=== PATIENT | female | born 1960 | race Two or more races ===

== ENCOUNTER 2024-09-05 20:12 | Inpatient (IN) | payer BC, MEDICAID ==
[~2024-09-05] VITALS: Ht 154.9 cm; Wt 56.2 kg
--- NOTE | 2024-09-05 21:41 | ED.PDOC ---
SOB-HPI HPI Comments 64 year old female presents to the ED with a chief complaint of cough onset 2 days. states patient has been experiencing cough for the past 2 days, noticed patient coughed up blood today around 11:00. Patient is non verbal due to CVA, is able to answer questions, shaking head yes or no. Upon ED arrival patient had an O2 sat of 84% on RA, placed on 4L O2 increased to 91%. Denies nausea, vomiting, diarrhea, shortness of breath, chest pain, fevers, abdominal pain, dizziness. No other symptoms or modifying factors present at this time. Chief Complaint: Cough Time Seen by MD: 21:35 Reviewed notes: Medications, Allergies Information Source: Patient, Spouse Mode of Arrival: Ambulatory Severity: Moderate Timing: Days Duration: Since onset Context: At Rest PE Risk Factors: None History of: None Prehospital treatment: None Modifying Factors: Nothing Associated Signs and Symptoms: Cough, Hemoptysis Radiation: No Radiation If cough with SOB: Productive, Bloody Constitutional: denies: chills, diaphoresis, fatigue, fever, malaise, sweats, weakness, others EENTM: denies: blurred vision, double vision, ear bleeding, ear discharge, ear drainage, ear pain, ear ringing, eye pain, eye redness, hearing loss, mouth pain, mouth swelling, nasal discharge, nose bleeding, nose congestion, nose pain, photophobia, tearing, throat pain, throat swelling, voice changes, others Respiratory: reports: cough, hemoptysis; denies: orthopnea, SOB at rest, shortness of breath, SOB with excertion, stridor, wheezing, others Cardiovascular: denies: chest pain, dizzy spells, diaphoresis, Dyspnea on exertion, edema, irregular heart beat, left arm pain, lightheadedness, palpitations, PND, syncope, others Gastrointestinal: denies: abdomen distended, abdominal pain, blood streaked bowels, constipated, diarrhea, dysphagia, difficulty swallowing, hematemesis, melena, nausea, poor appetite, poor fluid intake, rectal bleeding, rectal pain, vomiting, others Genitourinary: denies: abnormal vagina bleeding, burning, dyspareunia, dysuria, flank pain, frequency, hematuria, incontinence, pain, , vagina discharge, urgency, others Neurological: denies: dizziness, fainting, headache, left sided numbness, left sided weakness, numbness, paresthesia, pre-existing deficit, right sided numbness, right sided weakness, seizure, speech problems, tingling, tremors, weakness, others Musculoskeletal: denies: back pain, gout, joint pain, joint swelling, muscle pain, muscle stiffness, neck pain, others Integumetry: denies: bruises, change in color, change in hair/nails, dryness, laceration, lesions, lumps, rash, wounds, others Allergic/Immunocompromised: denies: Difficulty Healing, Frequent Infections, Hives, Itching, others Hematologic/Lymphatic: denies: anemia, blood clots, easy bleeding, easy bruising, swollen glands, others Endocrine: denies: excessive hunger, excessive sweating, excessive thirst, excessive urination, flushing, intolerance to cold, intolerance to heat, unexplained weight gain, unexplained weight loss, others Psychiatric: denies: anxiety, bipolar disorder, depression, hopeless, panic disorder, schizophrenia, sleepless, suicidal, others All Other Systems: Reviewed and Negative Physical Exam General Appearance: No Apparent Distress, Normal HEENT: Normal ENT Inspection, Pharynx Normal, TMs Normal Neck: Full Range of Motion, Non-Tender, Normal, Normal Inspection Respiratory: Chest Non-Tender, Lungs Clear, No Accessory Muscle Use, No Respiratory Distress, Normal Breath Sounds Cardiovascular: No Edema, No JVD, No Murmur, No Gallop, Normal Peripheral Pulses, Regular Rate/Rhythm Breast Exam: Deferred Gastrointestinal: No Organomegaly, Non Tender, No Pulsatile Mass, Normal Bowel Sounds, Soft Genitalia: Deferred Pelvic: Deferred Rectal: Deferred Extremities: No calf tenderness, Normal capillary refill, Normal inspection, Normal range of motion, Non-tender, No pedal edema Musculoskeletal : Apperance: Normal Neurologic: Alert, boatswain's mate II-XII nml as Tested, No Motor Deficits, Normal Affect, Normal Mood, No Sensory Deficits Cerebellar Function: Normal Reflexes: Normal Skin: Dry, Normal Color, Warm Lymphatic: No Adenopathy Was a procedure done? Was a procedure done?: No Differential Dx Differential Diagnosis: Asthma, Bronchitis, CHF, COPD, Pulmonary Embolism, Respiratory Distress, URI, Other X-Ray, Labs, Meds, VS Vital Signs Date Time Temp Pulse Resp B/P (MAP) Pulse Ox O2 Delivery O2 Flow Rate FiO2 09/05/24 21:33 98.9 68 16 141/65 (90) 90 98.9 09/05/24 21:33 16 91 Nasal Cannula* 4 36 Lab Test 09/05/24 22:54 09/05/24 22:07 Range/Units Troponin I High Sensitivity Pending < 3 L </=34 ng/L White Blood Count 15.5 H 4.4-10.8 10^3/uL Red Blood Count 5.26 H 4.0-5.20 10^6/uL Hemoglobin 16.4 H 12.2-16.2 g/dL Hematocrit 50.1 H 36.0-46.0 % Mean Corpuscular Volume 95.4 80.0-100.0 fL Mean Corpuscular Hemoglobin 31.2 28.0-32.0 pg Mean Corpuscular Hemoglobin Concent 32.7 32.0-36.0 g/dL Red Cell Distribution Width 14.5 H 11.8-14.3 % Platelet Count 237 140-450 10^3/uL Mean Platelet Volume 9.5 6.9-10.8 fL Neutrophils (%) (Auto) 79.6 37.0-80.0 % Lymphocytes (%) (Auto) 14.1 10.0-50.0 % Monocytes (%) (Auto) 5.0 0.0-12.0 % Eosinophils (%) (Auto) 0.6 0.0-7.0 % Basophils (%) (Auto) 0.7 0.0-2.0 % Neutrophils # (Auto) 12.3 H 1.6-8.6 10 ^3/uL Lymphocytes # (Auto) 2.2 0.4-5.4 10 ^3/uL Monocytes # (Auto) 0.8 0-1.3 10 ^3/uL Eosinophils # (Auto) 0.1 0-0.8 10 ^3/uL Basophils # (Auto) 0.1 0-0.2 10 ^3/uL Nucleated Red Blood Cells 0.3 % Prothrombin Time 11.4 9.3-11.8 sec Prothrombin Time INR 1.08 0.9-1.15 Activated Partial Thromboplast Time 30.2 24.5-34.5 SEC Sodium Level 139 136-145 mmol/L Potassium Level 4.5 3.5-5.1 mmol/L Chloride Level 107 98-107 mmol/L Carbon Dioxide Level 22 20-31 mmol/L Anion Gap 10 5-15 Blood Urea Nitrogen 20 9-23 mg/dL Creatinine 0.85 0.550-1.02 mg/dL Glomerular Filtration Rate Calc 76 >90 mL/min BUN/Creatinine Ratio 23.5 H 10.0-20.0 Serum Glucose 94 74-106 mg/dL Lactic Acid Level 1.4 0.4-2.0 mmol/L Calcium Level 10.5 H 8.7-10.4 mg/dL Total Bilirubin 0.5 0.2-1.0 mg/dL Aspartate Amino Transferase (AST) 17 13-40 U/L Alanine Aminotransferase (ALT) 25 7-40 U/L Alkaline Phosphatase 115 46-116 U/L B-Type Natriuretic Peptide 33.96 0-100 pg/mL Total Protein 8.1 5.7-8.2 g/dL Albumin 5.3 H 3.2-4.8 g/dL Time of 1ST Reevaluation: 22:05 Reevaluation 1ST: Unchanged Time of 2ND Reevaluation: 23:14 Reevaluation 2ND: Unchanged Patient Education/Counseling: Diagnosis, Treatment, Prognosis Family Education/Counseling: Diagnosis, Treatment, Prognosis Additional Information The following tests were ordered, and results were reviewed by me: CBC, CMP, BNP, PTPTT, XY CHEST, EKG, TROP -x2, LA W/ REFLEX, BLOOD CULTURE Additional Information was gathered from interviewing the following independent historians: I reviewed and agreed with the following test results read by other providers:XY CHEST I discussed treatment and results with medical personnel and: Patient, Comprehensive systems review obtained and negative except for what is stated in the HPI. Departure 1 Departure Time of Disposition: 23:12 Impression: Primary Impression: Respiratory failure with hypoxia Additional Impression: Pneumonia Disposition: ADMITTED INPATIENT Condition: Guarded Discharged With: Self, Spouse Comments Cough with Hemoptysis and Hypoxia Chief Complaint: Cough with hemoptysis History of Present Illness: 64-year-old female presented to the ED accompanied by her with complaints of cough for the past several days. Today, the noticed the patient developed hemoptysis and gurgling respirations with labored breathing at home. Upon arrival to triage, patient was found to be hypoxic with oxygen saturation in the mid-80s on room air. She was immediately placed on supplemental oxygen via nasal cannula at 4L/min with improvement in oxygen saturation to low 90s. 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 Problem List: 1. Right lower lobe pneumonia, 2. Hypoxic respiratory failure, 3. Hemoptysis Differential Diagnosis: Community-acquired pneumonia, Healthcare-associated pneumonia, Pulmonary embolism, Bronchitis, Malignancy ED Course: Patient was found to be hypoxic requiring supplemental oxygen. Labs revealed leukocytosis, and imaging confirmed right lower lobe infiltrate. Patient received IV antibiotics (Ceftriaxone and Azithromycin) and was stabilized on supplemental oxygen. Assessment and Plan: 1. Right Lower Lobe Pneumonia with Hypoxic Respiratory Failure: - Admit to medical floor for continued management - Continue IV Ceftriaxone and Azithromycin - Supplemental oxygen via nasal cannula to maintain O2 saturation > 92% - Monitor respiratory status - Deep breathing exercises and pulmonary toilet 2. Hemoptysis: - Likely secondary to pneumonia - Monitor for worsening Billing Information: ICD-10: J18.1 - Right lower lobe pneumonia ICD-10: J96.01 - Acute hypoxic respiratory failure ICD-10: R04.2 - Hemoptysis Critical Care Note Critical Care Time?: Yes (35 min-critical care time only) Critical care comment: Total critical care time: Approximately 36 minutes Due to a high probability of clinically significant, life threatening deterioration, the patient required my highest level of preparedness to intervene emergently and I personally spent this critical care time directly and personally managing the patient. This critical care time included obtaining a history; examining the patient; pulse oximetry; ordering and review of studies; arranging urgent treatment with development of a management plan; evaluation of patient's response to treatment; frequent reassessment; and, discussions with other providers. This critical care time was performed to assess and manage the high probability of imminent, life-threatening deterioration that could result in multi-organ failure. It was exclusive of separately billable procedures and treating other patients. Stability Stability form required: No Heart Score Heart Score: Heart Score Response (Comments) Value History Slightly Suspicious 0 EKG Normal 0 Age >65 2 Risk Factors 1 or 2 risk factors 1 Troponin Normal limit 0 Total 3 I personally scribed for VALDEZ LIM MD ([email or web address]) on 09/05/24 at 21:41. Electronically submitted by Nancie Pierce ([email or web address]). I personally scribed for VALDEZ LIM MD ([email or web address]) on 09/05/24 at 21:57. Electronically submitted by Nancie Pierce ([email or web address]). I personally scribed for VALDEZ LIM MD ([email or web address]) on 09/05/24 at 22:03. Electronically submitted by Nancie Pierce ([email or web address]). VALDEZ LIM MD Sep 05, 2024 21:41
[2024-09-05 22:23] LABS: Basophils # (auto) 0.1 10 ^3/uL (0-0.2); Basophils % (auto) 0.7 % (0.0-2.0); Eosinophils # (auto) 0.1 10 ^3/uL (0-0.8); Eosinophils % (auto) 0.6 % (0.0-7.0); Hematocrit 50.1 % (36.0-46.0); Hemoglobin 16.4 g/dL (12.2-16.2); Lymphocytes # (auto) 2.2 10 ^3/uL (0.4-5.4); Lymphocytes % (auto) 14.1 % (10.0-50.0); Mean Corpuscular Hemoglobin 31.2 pg (28.0-32.0); Mean Corpuscular Hgb Conc. 32.7 g/dL (32.0-36.0); Mean Corpuscular Volume 95.4 fL (80.0-100.0); Monocytes # (auto) 0.8 10 ^3/uL (0-1.3); Neutrophils # (auto) 12.3 10 ^3/uL (1.6-8.6); Neutrophils % (auto) 79.6 % (37.0-80.0); Nucleated Red Blood Cells % 0.3 %; Platelet Count (auto) 237 10^3/uL (140-450); Red Blood Cells 5.26 10^6/uL (4.0-5.20); Red Cell Distribution Width 14.5 % (11.8-14.3); White Blood Cell 15.5 10^3/uL (4.4-10.8)
--- NOTE | 2024-09-05 22:26 | DVH ---
CHEST RADIOGRAPH Indication: SOB, cough with hemoptysis Technique: Single frontal view of the chest was obtained Comparison: None Findings/ IMPRESSION: Right basilar opacification concerning for airspace disease. No pneumothorax.
[2024-09-05 22:36] LABS: INR 1.08 (0.9-1.15); Partial Thromboplastin Time 30.2 SEC (24.5-34.5); Prothrombin Time 11.4 sec (9.3-11.8)
[2024-09-05 22:40] LABS: Alanine Aminotransferase 25 U/L (7-40); Alkaline Phosphatase 115 U/L (46-116); Anion Gap 10 (5-15); Aspartate Aminotransferase 17 U/L (13-40); BUN/Creatinine Ratio 23.5 (10.0-20.0); Bilirubin, Total 0.5 mg/dL (0.2-1.0); Blood Urea Nitrogen 20 mg/dL (9-23); Carbon Dioxide 22 mmol/L (20-31); Glucose 94 mg/dL (74-106); Potassium 4.5 mmol/L (3.5-5.1); Sodium 139 mmol/L (136-145); Total Protein 8.1 g/dL (5.7-8.2)
[2024-09-05 22:42] LABS: Albumin 5.3 g/dL (3.2-4.8); Calcium 10.5 mg/dL (8.7-10.4); Chloride 107 mmol/L (98-107)
--- NOTE | 2024-09-05 23:49 | DVHHPRES ---
History of Present Illness Resident Creating Document: TADEO FORBES RESIDENT History of Present Illness Ms Sosa this is a 64-year-old female with past medical history of multiple strokes, last stroke in 2018, possible hemorrhagic, slurred speech and residual RUE and RLE weakness, hypertension hyperlipidemia, ? COPD not on inhalers, chronic nicotine dependence presented to the ER with a chief complaint of hemoptysis for 1 day and shortness of breath for the past 3 days. Per patient's , present at ER, patient met her daughter who was sick and had similar complaints, then started the which is productive with phlegm which is yellowish, and now bloody - fresh red in color for the past day, associated with shortness of breaths on exertion, patient denies taking any inhalers at home. Patient denied fever, chills, nausea, vomiting, chest pain, abdominal pain, constipation or diarrhea. On arrival to the ER patient was saturating at 88, therefore required 4 L oxygen supplementation. She did not use oxygen at home. Chest x-ray shows right lower obesity. Past medical history: multiple strokes, last stroke in 2018, possible hemorrhagic, slurred speech and residual RUE and RLE weakness, hypertension hyperlipidemia, ? COPD not on inhalers, chronic nicotine dependence Home medications: Plavix 70 mg daily, citalopram 20 mg daily amlodipine 10 mg daily, olmesartan 20 mg daily PCP: In [place] Social history: Patient recently moved from [place] to [place]. Smoked a pack a day for the past 50 years, now smokes 1-2 cigarettes per day, denies marijuana, denies illicit drug use, denies drinking Patient seen and examined in the ER. Saturating 95 on 4 L oxygen supplementation. Has bilateral decreased breath sound on distant breath sounds. Smoke: <1 pack per day ALCOHOL: none Drugs: None Lives: with Family Review of Systems Constitutional: Yes: Weakness Respiratory: Cough, Shortness of breath, SOB with excertion, Hemoptysis Cardiovascular: Edema Allergies: Uncoded Allergies: SULFATE (Allergy, Unknown, 09/05/24) Exam Vital Signs Vital Signs Date Time Temp Pulse Resp B/P (MAP) Pulse Ox O2 Delivery O2 Flow Rate FiO2 09/05/24 21:33 98.9 68 16 141/65 (90) 90 98.9 09/05/24 21:33 Nasal Cannula* 4 36 Exam Female patient sitting in wheelchair in the ER comfortably, no acute distress. Patient has slurred speech General: Well-built, afebrile, palor, mucosae are moist Cardiovascular: Regular S1 and S2. No murmurs, gallops or rubs. No JVD elevation. Bilateral 2+ pitting edema Respiratory: Saturating 95 on 4 L NC. Bilateral decreased breath sounds. Abdomen: Soft, nontender, nondistended, normoactive bowel sounds, no rebound tenderness, no organomegaly, no masses Genitourinary: Deferred MSK/skin: Right upper extremity is contracted and flexed. Right lower extremity has motor weakness. Neurological: Urinary and bowel incontinence. Pupils are isocoric and reactive. Psych/Mental Status: A/Ox3 Labs/Xrays Labs Test 09/05/24 22:54 09/05/24 22:07 Range/Units Troponin I High Sensitivity < 3 L </=34 ng/L White Blood Count 15.5 H 4.4-10.8 10^3/uL Red Blood Count 5.26 H 4.0-5.20 10^6/uL Hemoglobin 16.4 H 12.2-16.2 g/dL Hematocrit 50.1 H 36.0-46.0 % Mean Corpuscular Volume 95.4 80.0-100.0 fL Mean Corpuscular Hemoglobin 31.2 28.0-32.0 pg Mean Corpuscular Hemoglobin Concent 32.7 32.0-36.0 g/dL Red Cell Distribution Width 14.5 H 11.8-14.3 % Platelet Count 237 140-450 10^3/uL Mean Platelet Volume 9.5 6.9-10.8 fL Neutrophils (%) (Auto) 79.6 37.0-80.0 % Lymphocytes (%) (Auto) 14.1 10.0-50.0 % Monocytes (%) (Auto) 5.0 0.0-12.0 % Eosinophils (%) (Auto) 0.6 0.0-7.0 % Basophils (%) (Auto) 0.7 0.0-2.0 % Neutrophils # (Auto) 12.3 H 1.6-8.6 10 ^3/uL Lymphocytes # (Auto) 2.2 0.4-5.4 10 ^3/uL Monocytes # (Auto) 0.8 0-1.3 10 ^3/uL Eosinophils # (Auto) 0.1 0-0.8 10 ^3/uL Basophils # (Auto) 0.1 0-0.2 10 ^3/uL Nucleated Red Blood Cells 0.3 % Prothrombin Time 11.4 9.3-11.8 sec Prothrombin Time INR 1.08 0.9-1.15 Activated Partial Thromboplast Time 30.2 24.5-34.5 SEC Sodium Level 139 136-145 mmol/L Potassium Level 4.5 3.5-5.1 mmol/L Chloride Level 107 98-107 mmol/L Carbon Dioxide Level 22 20-31 mmol/L Anion Gap 10 5-15 Blood Urea Nitrogen 20 9-23 mg/dL Creatinine 0.85 0.550-1.02 mg/dL Glomerular Filtration Rate Calc 76 >90 mL/min BUN/Creatinine Ratio 23.5 H 10.0-20.0 Serum Glucose 94 74-106 mg/dL Lactic Acid Level 1.4 0.4-2.0 mmol/L Calcium Level 10.5 H 8.7-10.4 mg/dL Total Bilirubin 0.5 0.2-1.0 mg/dL Aspartate Amino Transferase (AST) 17 13-40 U/L Alanine Aminotransferase (ALT) 25 7-40 U/L Alkaline Phosphatase 115 46-116 U/L B-Type Natriuretic Peptide 33.96 0-100 pg/mL Total Protein 8.1 5.7-8.2 g/dL Albumin 5.3 H 3.2-4.8 g/dL Assessment/Plan Assessment/Plan Acute hypoxic respiratory failure secondary to probable pneumonia, Gram-negative Probable sepsis due to above Acute COPD exacerbation Multiple CVAs in the past with residual right-sided weakness-last episode 2017 Hypertension Hyperlipidemia Nicotine dependence Plan: IV ceftriaxone and IV azithromycin, IV fluids for pneumonia Nebulized treatments along with p.o. prednisolone 40 mg b.i.d. for COPD exacerbation Continue Plavix and atorvastatin Consulted shear helper for hemoptysis and acute hypoxic respiratory failure Continue home medication amlodipine Nicotine patch advised Patient would benefit from Laba/Lama inhalers on discharge Diet NPO for now Lovenox 40 mg sc daily Pantoprazole 40 mg IV daily Plan discussed with patient and in the ER in which all questions have been answered Goals of care discussed for more than 30 minutes, full code status Case discussed with Dr. Price Plan discussed with: Patient Date of Service: Sep 05, 2024 Billing Provider: JUAN PRICE MD Common Visit Codes: 62109-[id number] INP/OBS CARE (HIGH) TADEO FORBES RESIDENT Sep 05, 2024 23:49
[2024-09-06] VITALS (18 sets, daily range): BP systolic 113–138; BP diastolic 55–72; PULSE 66–92; RESP 16–20; TEMP 97.5–98.4; O2SAT 55–99
[2024-09-06] MEDS: amLODIPine BESYLATE 5 MG TAB PO ONE
[2024-09-06] MEDS: ATORVASTATIN 20 MG TAB PO ONE
--- NOTE | 2024-09-06 00:34 | DVH ---
Bilateral lower extremity venous duplex Clinical History: r/o dvt Comparison: None Technique: Duplex Doppler evaluation of the deep venous systems of both lower extremities from the common femora l veins to the popliteal veins including color Doppler and spectral/pulsed waveform analysis was perf ormed. Findings: RIGHT SIDE: The common femoral vein demonstrates appropriate compressibility and waveform variability. There is compressibility/patency of the great saphenous vein at the proximal thigh. The femoral vein demonstrates appropriate compressibility and waveform variability. The deep femoral vein demonstrates appropriate compressibility and waveform variability. The popliteal vein demonstrates appropriate compressibility and waveform variability. There is normal compressibility at the tibioperoneal trunk. LEFT SIDE: The common femoral vein demonstrates appropriate compressibility and waveform variability. There is compressibility/patency of the great saphenous vein at the proximal thigh. The femoral vein demonstrates appropriate compressibility and waveform variability. The deep femoral vein demonstrates appropriate compressibility and waveform variability. The popliteal vein demonstrates appropriate compressibility and waveform variability. There is normal compressibility at the tibioperoneal trunk. Impression: 1. No right or left femoropopliteal venous thrombosis.
[2024-09-06] MEDS: IPRATROPIUM BROM 0.5 MG/2.5ML INH SOL NEB ONE (00:35)
[2024-09-06] MEDS: ALBUTEROL SULF 2.5 MG/0.5ML(0.5%) NEB SOLN NEB ONE (00:35)
[2024-09-06] MEDS: cefTRIAXone 1GM/50ML D5W 50 ML IV ONE (01:09)
[2024-09-06 01:18] LABS: Erythrocyte Sedimentation Rate 15 mm/hr (0-20)
[2024-09-06 01:49] LABS: COVID19 ANTIGEN SOFIA FIA NEGATIVE (NEGATIVE)
[2024-09-06 01:50] LABS: Rapid Influenza A Negative (Negative); Rapid Influenza B Negative (Negative)
[2024-09-06 01:52] LABS: T3 Total 0.61 ng/mL (0.60-1.81)
[2024-09-06 02:18] LABS: Base Excess -2.3 mmol/L (-2.0-3.0)
[2024-09-06] MEDS ORDERED: AMLO1TAB23 PO (02:36)
[2024-09-06] MEDS ORDERED: SIMV20TA20 PO (02:36)
[2024-09-06] MEDS ORDERED: LEVO50TA7 PO (02:36)
[2024-09-06] MEDS ORDERED: OLME20TA67 PO (02:36)
[2024-09-06] MEDS ORDERED: CITA-77 PO (02:36)
[2024-09-06] MEDS ORDERED: CLOP75TA70 PO (02:36)
[2024-09-06] MEDS: predniSONE 20 MG TAB PO ONE (03:53)
[2024-09-06] MEDS: PANTOPRAZOLE 40 MG/10 ML VIAL INJ IV SCH (03:53)
[2024-09-06] MEDS: AZITHROMYCIN 500MG/ 250ML 250 ML IV ONE (03:54)
[2024-09-06] MEDS: NICOTINE 14 MG/24HR TOPICAL PATCH TD ONE (03:55)
[2024-09-06 04:04] LABS: CRP High Sensitivity 0.21 mg/dL (<1.0); Magnesium 2.2 mg/dL (1.6-2.6)
[2024-09-06] MEDS ORDERED: ALBUTEROL SULF 2.5 MG/0.5ML(0.5%) NEB SOLN NEB SCH (06:00)
[2024-09-06] MEDS: LEVOTHYROXINE SODIUM 50 MCG TAB PO SCH (06:01)
[2024-09-06] MEDS: ALBUTEROL SULF 2.5 MG/0.5ML(0.5%) NEB SOLN NEB SCH (06:49)
[2024-09-06] MEDS: IPRATROPIUM BROM 0.5 MG/2.5ML INH SOL NEB SCH (06:49)
[2024-09-06 07:19] LABS: Basophils # (auto) 0.1 10 ^3/uL (0-0.2); Basophils % (auto) 0.6 % (0.0-2.0); Eosinophils # (auto) 0 10 ^3/uL (0-0.8); Eosinophils % (auto) 0.2 % (0.0-7.0); Hematocrit 39.8 % (36.0-46.0); Hemoglobin 13.5 g/dL (12.2-16.2); Lymphocytes % (auto) 8.9 % (10.0-50.0); Mean Corpuscular Hemoglobin 31.7 pg (28.0-32.0); Mean Corpuscular Hgb Conc. 33.9 g/dL (32.0-36.0); Mean Corpuscular Volume 93.6 fL (80.0-100.0); Monocytes # (auto) 0.4 10 ^3/uL (0-1.3); Monocytes % (auto) 3.2 % (0.0-12.0); Neutrophils # (auto) 9.9 10 ^3/uL (1.6-8.6); Neutrophils % (auto) 87.1 % (37.0-80.0); Platelet Count (auto) 199 10^3/uL (140-450); Red Blood Cells 4.26 10^6/uL (4.0-5.20); White Blood Cell 11.3 10^3/uL (4.4-10.8)
[2024-09-06 07:30] LABS: Alanine Aminotransferase 15 U/L (7-40); Albumin 4.4 g/dL (3.2-4.8); Alkaline Phosphatase 91 U/L (46-116); Anion Gap 8 (5-15); BUN/Creatinine Ratio 21.5 (10.0-20.0); Bilirubin, Total 0.8 mg/dL (0.2-1.0); Blood Urea Nitrogen 17 mg/dL (9-23); Calcium 9.6 mg/dL (8.7-10.4); Carbon Dioxide 22 mmol/L (20-31); Chloride 106 mmol/L (98-107); Potassium 3.9 mmol/L (3.5-5.1); Total Protein 6.8 g/dL (5.7-8.2)
[2024-09-06 07:36] LABS: Aspartate Aminotransferase 11 U/L (13-40); Glucose 133 mg/dL (74-106); Sodium 136 mmol/L (136-145)
--- NOTE | 2024-09-06 09:03 | ECG ---
[facility] Test Date: 2024-09-05 Test Time: 21:43:22 Pat Name: MP RIBEIRO Department: ER Room: 0282 Gender: F Lmsw: AM : 1960 Requested By: VALDEZ LMI Order Number: [id number] Reading MD: Berto Francisco Measurements Intervals [place] Rate: 65 P: 72 AL: 158 QRS: 32 QRSD: 84 T: 57 QT: 537 QTc: 559 Interpretive Statements Sinus rhythm Low voltage, extremity and precordial leads Prolonged QT interval Electronically Signed On 09-09-2024 20:20:43 PDT by Berto Francisco Please click the below link to view image of tracing.
[2024-09-06] MEDS: ENOXAPARIN SOD 40 MG/0.4 ML SYRINGE SC SCH (09:07)
[2024-09-06] MEDS: cefTRIAXone 1GM/50ML D5W 50 ML IV SCH (09:07)
[2024-09-06] MEDS: CITALOPRAM HYDROBR 20 MG TAB PO SCH (09:08)
[2024-09-06] MEDS: predniSONE 20 MG TAB PO SCH (09:08)
[2024-09-06] MEDS: CLOPIDOGREL BISULFATE 75 MG TAB PO SCH (09:09)
[2024-09-06] MEDS: amLODIPine BESYLATE 5 MG TAB PO SCH (09:10)
[2024-09-06] MEDS: AZITHROMYCIN 500MG/ 250ML 250 ML IV SCH (10:29)
--- NOTE | 2024-09-06 11:19 | DVHPNRES ---
Progress Note Date Seen: Sep 06, 2024 Resident Creating Document: EDUARDO SAAB RESIDENT Has the PT tested + for MRSA If YES, has PT been informed?: No Medical Necessity Reason Pt with a Central, PICC or Fol: No Subjective Review of Systems This is a 64-year-old female with past medical history of multiple strokes, last stroke was in 2018 with a hemorrhagic stroke bilaterally which had neurologic residual deficits in the right upper and right lower extremities and slurred speech, hypertension, hyperlipidemia, COPD (no home oxygen) \, hypothyroidism who presented to the ED brought by her due to shortness of breath, cough and hemoptysis. The states that all symptoms started three days before coming to the ED. 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 Patient and both denied any episode of fever/chills, weight loss, chest pain, abdominal tenderness, lower extremity swelling or any other symptoms. Upon admission, initial CBC showed a WBC of 11.3 but BNP was grossly unremarkable. TSH was significantly elevated at 63.84, we ordered free T4. Initial chest x-ray was showing right lower lobe opacities which could be compatible with consolidation/pneumonia. Patient was started on IV ceftriaxone and azithromycin. Patient was admitted for further assessment and management. Patient seen and examined at bedside. Patient is currently alert and oriented but is difficult to speak and has slurry speech due to residual neurologic deficits due to stroke in 2018. Patient is currently on 4 L of oxygen through nasal cannula and reports mild shortness of breath but denies chest pain at this time. There is mild crackles on right lower lobe and there is decreased breath sounds on bilateral lung sanchez. There was no lower extremity swelling and no additional findings at this time. Patient denies fever/chills, chest pain, abdominal pain, or any other complaints or symptoms at this time. ROS Constitutional: Denies weight loss, fever and chills. HEENT: Denies changes in vision and hearing. Respiratory: Reports mild shortness of breath and cough Cardiovascular: Denies chest discomfort or palpitations GI: Denies abdominal pain, nausea, vomiting and diarrhea. : Denies dysuria and urinary frequency. Musculoskeletal: Denies myalgias and joint pain Skin: Denies rash and pruritus. Neurological: Denies dizziness, headache, vision or hearing problems Objective vital signs Vital Sign Date Time Temp Pulse Resp B/P (MAP) Pulse Ox O2 Delivery O2 Flow Rate FiO2 09/06/24 10:13 92 Nasal Cannula 4.0 09/06/24 10:13 71 18 09/06/24 10:13 28 09/06/24 09:10 113/57 09/06/24 09:00 97.7 97.7 Total Intake and Output 09/05/24 09/05/24 09/06/24 15:00 23:00 07:00 Intake Total 0 ml Output Total 1 ml Balance -1 ml medications Current Medications Medications Dose Ordered Sig/Mihai Route Start Time Stop Time Status Last Admin Dose Admin Ipratropium [place] 0.5 mg Q4HWA NEB 09/06/24 06:00 09/06/24 10:13 0.5 MG Ceftriaxone Sodium 50 ml @ 100 mls/hr DAILY@09 IV 09/06/24 09:00 09/06/24 09:07 100 MLS/HR Azithromycin 250 ml @ 125 mls/hr DAILY IV 09/06/24 10:00 09/06/24 10:29 125 MLS/HR Levothyroxine Sodium 50 mcg QAM@0600 PO 09/06/24 06:00 09/06/24 06:01 50 MCG Amlodipine Besylate 10 mg DAILY PO 09/06/24 10:00 09/06/24 09:10 10 MG Citalopram Hydrobromide 20 mg DAILY PO 09/06/24 10:00 09/06/24 09:08 20 MG Atorvastatin Calcium 40 mg HS PO 09/06/24 22:00 Clopidogrel Bisulfate 75 mg DAILY PO 09/06/24 10:00 09/06/24 09:09 75 MG Enoxaparin Sodium 40 mg DAILY SC 09/06/24 10:00 09/06/24 09:07 40 MG Prednisone 40 mg BID PO 09/06/24 10:00 09/06/24 09:08 40 MG Pantoprazole Sodium 40 mg DAILY IV 09/06/24 03:30 09/06/24 09:07 40 MG Nicotine 1 patch DAILY TD 09/07/24 10:00 Albuterol 2.5 mg Q4HWA NEB 09/06/24 06:00 09/06/24 10:13 2.5 MG Examination Physical Examination General: Patient alert and oriented but has slurred speech and unable to maintain long conversations due to previous stroke. Patient following commands. HEENT: Normocephalic, atraumatic, moist mucous membranes Respiratory/pulmonary: There is decreased bilateral breath sounds on both lung sanchez and mild crackles on right lower lobe. Patient was having mild wheezes as well. Currently requiring 4 L of oxygen through nasal cannula Cardiovascular: Normal heart sounds S1 and S2 with no associated murmurs Abdomen: Abdomen nondistended, there is no pain to palpation in any of the abdominal quadrants, no palpable masses. Extremities: There is no peripheral edema present at the lower extremities. Peripheral Pulses: 3+ Radial (R). 3+ Radial (L). 3+ Dorsalis pedis (R). 3+ Dorsalis pedis(L) Skin: No rashes or pruritus, there is no sacral edema present at this time. Neurological: Patient has neurologic deficits due to previous stroke which involve slurred speech and right upper and lower extremity weakness. laboratory and microbiology Laboratory Tests 09/06/24 06:12 Test 09/06/24 06:12 Range/Units Serum Glucose 133 H 74-106 mg/dL Problem List/Assessment/Plan Problem List/Assessment/Plan Assessment/plan Acute hypoxic respiratory failure likely due to right lower lobe Gram-positive/Gram-negative pneumonia Acute COPD exacerbation Sepsis likely due to above R/O Tuberculosis -initial chest x-ray showed right lower lobe opacities most likely compatible with consolidation -currently requiring 4 L of oxygen through nasal cannula -start IV ceftriaxone and azithromycin -start methylprednisolone IV 40 mg b.i.d. -start respiratory therapy with albuterol and ipratropium med nebs -Ordered quantiferon TB test (unlikely) -monitor saturation closely Ruled out lower ext DVT -lower extremity venous Doppler showed no evidence of DVT Hypothyroidism -TSH came back at 63.84, ordered free T4 -start levothyroxine at 75mcg QAM History of multiple CVAs with neurologic deficits in the right upper and lower extremity weakness -continue Plavix 75 mg daily -continue atorvastatin 40 mg daily Primary hypertension -continue amlodipine 10 mg daily -monitor blood pressure closely Dyslipidemia -ordered lipid panel -continue atorvastatin 40 mg daily Current smoker with nicotine dependence -nicotine patch 14 g daily -encouraged on smoking cessation Goals of care discussed with the patient and at bedside for >25min Plan discussed with Dr. William Plan discussed with: Patient, Other Date of Service: Sep 06, 2024 Billing Provider: DELANEY WILLIAM DO Common Visit Codes: [id number] INP/OBS CARE(HIGH) EDUARDO SAAB RESIDENT Sep 06, 2024 11:19 DELANEY WILLIAM DO Sep 08, 2024 22:24
[2024-09-06] MEDS: LEVOTHYROXINE SODIUM 25 MCG TAB PO ONE (11:32)
[2024-09-06 12:32] LABS: Cholesterol 179 mg/dL (< 200)
[2024-09-06 12:33] LABS: Triglycerides 48 mg/dL (< 150)
[2024-09-06 12:34] LABS: LDL Cholesterol 94 mg/dL (< 100)
[2024-09-06 12:39] LABS: HDL Cholesterol 72 mg/dL (40-59)
[2024-09-06] MEDS: IOHEXOL 350 MG/ML 100ML IJ ONE (14:03)
--- NOTE | 2024-09-06 15:04 | DVH ---
CTA Chest with intravenous contrast INDICATION: r/o nodules/mass/PE COMPARISON: None TECHNIQUE: Multidetector spiral CTA of the chest was performed of the chest with intravenous contrast . PULMONARY ANGIOGRAPHY PROTOCOL was utilized using a bolus-tracking technique centered on the main p ulmonary artery. Axial, coronal and sagittal multiplanar and MIP reformats were performed. CONTRAST: Type of contrast: Omni 350 Contrast injected: 80 ml Radiation dose : Chest: CTDI volume is 15 mGy. Dose-length product is 505 mGy*cm The dose indicators for CT are the volume computed Tomography (CT) dose Index (CTDIvol) and the dose Length product (DLP), and are measured in units of mGy and mGy-cm, respectively. These indicators are not patient dose, but values generated from the CT scanner acquisition factors. The report includes radiation exposure data for exposures received during this examination. Findings: Limited by motion. Pulmonary artery: No large central or large segmental pulmonary embolism. Lower neck: Normal thyroid. Lungs: Bibasilar consolidation. Emphysematous changes in both lungs. Heart/Vascular Structures: Normal heart size. Small pericardial effusion. Lymph Nodes: Mediastinal lymph nodes, largest in the AP window measuring up to 11 mm in short axis. Pleura: No pleural effusion or significant pneumothorax. Musculoskeletal: No acute osseous abnormality. Soft tissues: Normal. Upper abdomen: Fullness in the region of the christian hepatis incompletely evaluated. IMPRESSION: 1. No pulmonary embolism. 2. Bibasilar pneumonia. Small pericardial effusion. Mediastinal lymphadenopathy. Clinical correlatio n and continued follow-up is recommended. 3. Fullness in the region of the christian hepatis incompletely evaluated. Could represent volume averagi ng. Consider further evaluation with CT or MRI of the abdomen with contrast. HS:Y
[2024-09-06 19:17] LABS: Free T4 (Free Thyroxine) 0.89 ng/dL (0.89-1.76)
--- NOTE | 2024-09-06 21:31 | DVHINCON2 ---
Date of service: Sep 06, 2024 Referring Physician Americo Wilkes MD Reason for Consultation Acute hypoxic respiratory failure, COPD exacerbation, hemoptysis, pneumonia History of Present Illness A 64-year-old woman with past medical history of ? COPD - not on inhalers; multiple strokes, last stroke in 2018, possible hemorrhagic, slurred speech and residual RUE and RLE weakness; hypertension, hyperlipidemia, and chronic nicot ine dependence who presented to ED on 09/05/24 with a chief complaint of hemoptysis for 1 day and shortness of breath x 3 days. Per patient's , patient had positive sick contact w/ daughter and developed productive cough w/ yellowish phlegm, now bloody for the past day, associated with shortness of breath on exertion. Pt denied fever, chills, N/V, chest pain, abdominal pain, or other acute complaints. In the ED, sats were 88%, therefore required 4 LPM NC. Chest x-ray showed right basilar opacification concerning for airspace disease. No pneumothorax.. Patient was admitted for further care and pulmonary consultation is requested for evaluation and management d/t the above findings. Review of Systems: 14-point review of systems negative unless otherwise noted above. Past Medical History: Multiple strokes, last stroke in 2018, possible hemorrhagic, slurred speech and residual RUE and RLE weakness, hypertension, hyperlipidemia, ? COPD - not on inhalers Past Surgical History: None Medications: Reviewed. Allergies: No known drug allergies. Family History: No family history of premature CAD. No family history of lung disorders. Social History: Smoker, less than 1 PPD. Smoked a pack a day for the past 50 years, now smokes 1-2 cigarettes per day, No alcohol or illicit drug use. Family History: Cerebrovascular accident (CVA) G8 MOTHER FH: testicular cancer G8 FATHER Allergies: Uncoded Allergies: SULFATE (Allergy, Unknown, 09/05/24) Home Meds Reported Medications Levothyroxine Sodium (Levothyroxine Sodium) 50 Mcg Tab, 1 TAB PO DAILY 09/06/24 Citalopram Hydrobromide (Citalopram Hydrobromide) 20 Mg Tab, 1 TAB PO DAILY 09/06/24 Olmesartan Medoxomil (Olmesartan Medoxomil) 20 Mg Tab, 1 TAB PO DAILY 09/06/24 Clopidogrel Bisulfate (CLOPIDOGREL) 75 Mg Tab, 1 TAB PO DAILY 09/06/24 Amlodipine Besylate (Amlodipine Besylate) 10 Mg Tab, 1 TAB PO DAILY 09/06/24 Simvastatin (Simvastatin) 20 Mg Tab, 1 TAB PO 09/06/24 Current Medications Current Medications Medications (Trade) Dose Ordered Sig/Mihai Route PRN Reason Start Time Stop Time Status Last Admin Ipratropium [place] (Atrovent Medneb) 0.5 mg Q4HWA NEB 09/06/24 06:00 09/06/24 18:27 Albuterol (Ventolin Medneb) 2.5 mg Q6HR NEB 09/06/24 06:00 09/06/24 05:40 DC Ceftriaxone Sodium 50 ml @ 100 mls/hr DAILY@09 IV 09/06/24 09:00 09/06/24 09:07 Azithromycin 250 ml @ 125 mls/hr DAILY IV 09/06/24 10:00 09/06/24 10:29 Levothyroxine Sodium (Synthroid Tablet) 50 mcg QAM@0600 PO 09/06/24 06:00 09/06/24 11:10 DC 09/06/24 06:01 Amlodipine Besylate (Norvasc Tablet) 10 mg DAILY PO 09/06/24 10:00 09/06/24 09:10 Citalopram Hydrobromide (CeleXA TABLET) 20 mg DAILY PO 09/06/24 10:00 09/06/24 09:08 Atorvastatin Calcium (Lipitor) 40 mg HS PO 09/06/24 22:00 Clopidogrel Bisulfate (Plavix) 75 mg DAILY PO 09/06/24 10:00 09/06/24 09:09 Enoxaparin Sodium (Lovenox) 40 mg DAILY SC 09/06/24 10:00 09/06/24 09:07 Prednisone 40 mg BID PO 09/06/24 10:00 09/06/24 10:54 DC 09/06/24 09:08 Pantoprazole Sodium (Protonix) 40 mg DAILY IV 09/06/24 03:30 09/06/24 09:07 Nicotine (Nicoderm 14MG/ 24HR) 1 patch DAILY TD 09/07/24 10:00 Albuterol (Ventolin Medneb) 2.5 mg Q4HWA NEB 09/06/24 06:00 09/06/24 18:27 Methylprednisolone Sodium Succinate (Solu Medrol) 40 mg BID IV 09/06/24 22:00 Levothyroxine Sodium (Synthroid Tablet) 75 mcg QAM@0600 PO 09/07/24 06:00 Vital Signs Vital Signs Date Time Temp Pulse Resp B/P (MAP) Pulse Ox O2 Delivery O2 Flow Rate FiO2 09/06/24 21:00 97.9 79 16 115/55 (75) 55 97.9 09/06/24 18:27 Nasal Cannula 5.0 09/06/24 18:27 40 Physical Exam Gen.: Patient lying in bed in no apparent distress. On supplemental oxygen. Head: Normocephalic, atraumatic. Eyes: EOMI/PERRLA. Ears: Normal hearing. Normal anatomy. Neck/trachea: Trachea midline, supple. Nose: Normal external anatomy. Mouth: Moist mucous membranes. Chest: Decreased air entry bilaterally. No wheezing or rhonchi. Cardiovascular: Positive S1, positive S2. Regular rate and rhythm. Abdomen: Positive bowel sounds in all 4 quadrants. Soft, non-tender, non- distended. : Deferred. Rectal: Deferred. Skin: Warm, dry. Intact. Extremities: 2+ radial pulses bilaterally. No lower extremity edema. Neuro: Awake, alert, oriented x3. No gross motor or sensory deficits. Cranial nerves II through XII intact. Gait not assessed. Labs/Diagnostic Data Labs Test 09/06/24 11:45 09/06/24 06:12 09/06/24 02:01 09/06/24 01:08 Range/Units Triglycerides Level 48 < 150 mg/dL Cholesterol Level 179 < 200 mg/dL LDL Cholesterol 94 < 100 mg/dL HDL Cholesterol 72 H 40-59 mg/dL White Blood Count 11.3 #H 4.4-10.8 10^3/uL Red Blood Count 4.26 4.0-5.20 10^6/uL Hemoglobin 13.5 # 12.2-16.2 g/dL Hematocrit 39.8 # 36.0-46.0 % Mean Corpuscular Volume 93.6 80.0-100.0 fL Mean Corpuscular Hemoglobin 31.7 28.0-32.0 pg Mean Corpuscular Hemoglobin Concent 33.9 32.0-36.0 g/dL Red Cell Distribution Width 14.0 11.8-14.3 % Platelet Count 199 140-450 10^3/uL Mean Platelet Volume 9.2 6.9-10.8 fL Neutrophils (%) (Auto) 87.1 H 37.0-80.0 % Lymphocytes (%) (Auto) 8.9 L 10.0-50.0 % Monocytes (%) (Auto) 3.2 0.0-12.0 % Eosinophils (%) (Auto) 0.2 0.0-7.0 % Basophils (%) (Auto) 0.6 0.0-2.0 % Neutrophils # (Auto) 9.9 H 1.6-8.6 10 ^3/uL Lymphocytes # (Auto) 1.0 0.4-5.4 10 ^3/uL Monocytes # (Auto) 0.4 0-1.3 10 ^3/uL Eosinophils # (Auto) 0 0-0.8 10 ^3/uL Basophils # (Auto) 0.1 0-0.2 10 ^3/uL Nucleated Red Blood Cells 0.0 % Sodium Level 136 136-145 mmol/L Potassium Level 3.9 3.5-5.1 mmol/L Chloride Level 106 98-107 mmol/L Carbon Dioxide Level 22 20-31 mmol/L Anion Gap 8 5-15 Blood Urea Nitrogen 17 9-23 mg/dL Creatinine 0.79 0.550-1.02 mg/dL Glomerular Filtration Rate Calc 82 >90 mL/min BUN/Creatinine Ratio 21.5 H 10.0-20.0 Serum Glucose 133 H 74-106 mg/dL Hemoglobin A1c 5.3 <5.7 % A1C Calcium Level 9.6 8.7-10.4 mg/dL Total Bilirubin 0.8 0.2-1.0 mg/dL Aspartate Amino Transferase (AST) 11 L 13-40 U/L Alanine Aminotransferase (ALT) 15 7-40 U/L Alkaline Phosphatase 91 46-116 U/L Total Protein 6.8 5.7-8.2 g/dL Albumin 4.4 3.2-4.8 g/dL Vitamin B12 Level 471 211-911 pg/mL Vitamin D 25-Hydroxy 67.4 30.0-100 ng/mL Blood Gas Specimen Type Arterial Blood Gas Sample Site Left radial Blood Gas Patient Temperature 37.0 Arterial Blood Date Drawn [id number] Arterial Blood pH 7.441 7.350-7.450 Arterial Blood Partial Pressure CO2 31.1 L 32.0-45.0 mmHg Arterial Blood Partial Pressure O2 57.7 L 83.0-108.0 mmHg Arterial Blood HCO3 20.7 L 21.0-28.0 mmol/L Arterial Blood Oxygen Saturation 89.8 L 94.0-98.0 % Arterial Blood Base Excess -2.3 L -2.0-3.0 mmol/L Arterial Blood Oxyhemoglobin 88.7 L 94.0-98.0 % Arterial Blood Carboxyhemoglobin 0.9 0.5-1.5 % Arterial Blood Methemoglobin 0.3 0.0-1.5 % [place] Test N/a Blood Gas Total Hemoglobin 14.60 12.0-16.0 g/dL Blood Gas Liter Flow 4.00 Blood Gas Modality Nasal cannula FiO2 % 36.0 Influenza Type A Antigen Negative Negative Influenza Type B Antigen Negative Negative SARS-CoV-2 Antigen (Rapid) Negative NEGATIVE Test 09/06/24 00:27 09/05/24 22:54 09/05/24 22:07 Range/Units Erythrocyte Sedimentation Rate 15 0-20 mm/hr D-Dimer, Quantitative 0.44 0.0-0.49 mg/L FEU Magnesium Level 2.2 1.6-2.6 mg/dL Troponin I High Sensitivity < 3 L </=34 ng/L C-Reactive Protein High Sensitivity 0.21 <1.0 mg/dL Thyroid Stimulating Hormone (TSH) 63.84 H 0.55-4.78 uIU/mL Prothrombin Time 11.4 9.3-11.8 sec Prothrombin Time INR 1.08 0.9-1.15 Activated Partial Thromboplast Time 30.2 24.5-34.5 SEC Lactic Acid Level 1.4 0.4-2.0 mmol/L B-Type Natriuretic Peptide 33.96 0-100 pg/mL Free Thyroxine (T4) Calculated 0.89 0.89-1.76 ng/dL Total Triiodothyronine (TT3) 0.61 0.60-1.81 ng/mL Microbiology Date/Time Source Procedure Growth Status 09/06/24 06:59 Nose MRSA Screen - Final Complete Assessment Impression: Acute hypoxic respiratory failure Dependence on supplemental oxygen Acute COPD exacerbation Hemoptysis Rule out TB Rule out Pulmonary embolism Pneumonia, likely gram negative Nicotine dependence Plan: Supplemental oxygen 4 LPM NC Titrate to keep O2 sats above 92%. Taper O2 as tolerated. Follow up CT chest to rule out PE. Induction of sputum for cultures IV fluids with 3% normal saline. Continue bronchodilators. Continue antibiotics IV steroids Incentive spirometry Antitussive for cough Quantify hemoptysis Monitor renal function. Monitor electrolytes. Supplement as necessary. Monitor ins and outs. Smoking cessation discussed for greater than 10 minutes DVT prophylaxis. Prognosis: Poor given patient's multiple co-morbidities. Rest of plan per hospitalist and other consultants. Thank you Dr. Wilkes for allowing me to participate in this patient's care. Further recommendations will depend on the patient's clinical course. Please do not hesitate to contact me if you have any questions or concerns. This medical document was created using an electronic medical record system with [employer] dictation system. Although these documentations are being carefully reviewed, there may still be some phonetic and typographical changes. The errors are purely typographical, due to imperfection on the software program, and do not reflect any compromise in the patient's medical care. Plan discussed with: Other (RN/Dr. Wilkes) HUGH CABRERA MD Sep 06, 2024 21:31
[2024-09-06] MEDS: ATORVASTATIN 20 MG TAB PO SCH (21:41)
[2024-09-06] MEDS: methylPREDNISolone SOD SUCC 40 MG/ML VL IV SCH (21:41)
[2024-09-07] VITALS (17 sets, daily range): BP systolic 100–126; BP diastolic 47–55; PULSE 63–88; RESP 16–22; TEMP 98–98.5; O2SAT 90–99
[2024-09-07] MEDS: LEVOTHYROXINE SODIUM 25 MCG TAB PO SCH (06:10)
[2024-09-07 07:42] LABS: Basophils # (auto) 0 10 ^3/uL (0-0.2); Basophils % (auto) 0.1 % (0.0-2.0); Eosinophils # (auto) 0 10 ^3/uL (0-0.8); Hematocrit 38.3 % (36.0-46.0); Hemoglobin 12.9 g/dL (12.2-16.2); Lymphocytes # (auto) 1.1 10 ^3/uL (0.4-5.4); Lymphocytes % (auto) 7.4 % (10.0-50.0); Mean Corpuscular Hemoglobin 31.4 pg (28.0-32.0); Mean Corpuscular Hgb Conc. 33.8 g/dL (32.0-36.0); Mean Corpuscular Volume 92.7 fL (80.0-100.0); Monocytes # (auto) 0.5 10 ^3/uL (0-1.3); Monocytes % (auto) 3.2 % (0.0-12.0); Neutrophils # (auto) 13.4 10 ^3/uL (1.6-8.6); Neutrophils % (auto) 89.3 % (37.0-80.0); Platelet Count (auto) 224 10^3/uL (140-450); Red Blood Cells 4.13 10^6/uL (4.0-5.20); Red Cell Distribution Width 13.9 % (11.8-14.3)
[2024-09-07 07:43] LABS: Anion Gap 11 (5-15); Carbon Dioxide 22 mmol/L (20-31); Chloride 107 mmol/L (98-107); Potassium 4.3 mmol/L (3.5-5.1); Sodium 140 mmol/L (136-145)
[2024-09-07 07:44] LABS: Calcium 10.1 mg/dL (8.7-10.4)
[2024-09-07 07:49] LABS: BUN/Creatinine Ratio 19.8 (10.0-20.0); Blood Urea Nitrogen 17 mg/dL (9-23); Glucose 125 mg/dL (74-106)
[2024-09-07] MEDS: NICOTINE 14 MG/24HR TOPICAL PATCH TD SCH (09:52)
[2024-09-07] MEDS: POLYETHYLENE GLYCOL 17 GM PWDR PO ONE (09:52)
[2024-09-07] MEDS: DOCUSATE SOD 100 MG CAP PO SCH (09:54)
--- NOTE | 2024-09-07 10:57 | DVHPNRES ---
Progress Note Date Seen: Sep 07, 2024 Resident Creating Document: EDUARDO SAAB RESIDENT Has the PT tested + for MRSA If YES, has PT been informed?: No Medical Necessity Reason Pt with a Central, PICC or Fol: No Subjective Review of Systems This is a 64-year-old female with past medical history of multiple strokes, last stroke was in 2018 with a hemorrhagic stroke bilaterally which had neurologic residual deficits in the right upper and right lower extremities and slurred speech, hypertension, hyperlipidemia, COPD (no home oxygen) \, hypothyroidism who presented to the ED brought by her due to shortness of breath, cough and hemoptysis. The states that all symptoms started three days before coming to the ED. 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 Patient and both denied any episode of fever/chills, weight loss, chest pain, abdominal tenderness, lower extremity swelling or any other symptoms. Upon admission, initial CBC showed a WBC of 11.3 but BNP was grossly unremarkable. TSH was significantly elevated at 63.84, we ordered free T4. Initial chest x-ray was showing right lower lobe opacities which could be compatible with consolidation/pneumonia. Patient was started on IV ceftriaxone and azithromycin. Patient was admitted for further assessment and management. Patient seen and examined at bedside. was at bedside, questions and concerns were addressed and explained in detail. We explained her that we did a CT angio of the chest which showed no pulmonary embolism but it was showing bibasilar consolidations that are worse in the right side compared to the left. She also mediastinal lymphadenopathy which is concerning because we do not know if it is infectious etiology we will have to rule out any malignancy. We will perform an MRI of the abdomen with contrast to rule out any possible source of malignancy. Meanwhile we will continue IV antibiotics ceftriaxone and azithromycin. We are still waiting for QuantiFERON test to rule out TB. Patient is currently hemodynamically stable and states that he is feeling slightly better compared to admission. ROS Constitutional: Denies weight loss, fever and chills. HEENT: Denies changes in vision and hearing. Respiratory: Still reports mild shortness of breath and cough. Cardiovascular: Denies chest discomfort or palpitations GI: Denies abdominal pain, nausea, vomiting and diarrhea. : Denies dysuria and urinary frequency. Musculoskeletal: Denies myalgias and joint pain Skin: Denies rash and pruritus. Neurological: Denies dizziness, headache, vision or hearing problems Objective vital signs Vital Sign Date Time Temp Pulse Resp B/P (MAP) Pulse Ox O2 Delivery O2 Flow Rate FiO2 09/07/24 09:55 111/54 09/07/24 09:00 98.2 69 18 94 98.2 09/07/24 07:58 Oxymizer 8.0 09/07/24 07:58 N/A Total Intake and Output 09/06/24 09/06/24 09/07/24 15:00 23:00 07:00 Intake Total 300 ml 240 ml Balance 300 ml 240 ml medications Current Medications Medications Dose Ordered Sig/Mihai Route Start Time Stop Time Status Last Admin Dose Admin Ipratropium [place] 0.5 mg Q4HWA NEB 09/06/24 06:00 09/07/24 07:58 0.5 MG Ceftriaxone Sodium 50 ml @ 100 mls/hr DAILY@09 IV 09/06/24 09:00 09/07/24 09:51 100 MLS/HR Azithromycin 250 ml @ 125 mls/hr DAILY IV 09/06/24 10:00 09/06/24 10:29 125 MLS/HR Amlodipine Besylate 10 mg DAILY PO 09/06/24 10:00 09/07/24 09:55 10 MG Citalopram Hydrobromide 20 mg DAILY PO 09/06/24 10:00 09/07/24 09:56 20 MG Atorvastatin Calcium 40 mg HS PO 09/06/24 22:00 09/06/24 21:41 40 MG Clopidogrel Bisulfate 75 mg DAILY PO 09/06/24 10:00 09/07/24 09:55 75 MG Enoxaparin Sodium 40 mg DAILY SC 09/06/24 10:00 09/07/24 09:57 40 MG Pantoprazole Sodium 40 mg DAILY IV 09/06/24 03:30 09/07/24 09:54 40 MG Nicotine 1 patch DAILY TD 09/07/24 10:00 09/07/24 09:52 1 PATCH Albuterol 2.5 mg Q4HWA NEB 09/06/24 06:00 09/07/24 07:58 2.5 MG Methylprednisolone Sodium Succinate 40 mg BID IV 09/06/24 22:00 09/07/24 09:53 40 MG Levothyroxine Sodium 75 mcg QAM@0600 PO 09/07/24 06:00 09/07/24 06:10 75 MCG Docusate Sodium 100 mg BID PO 09/07/24 10:00 09/07/24 09:54 100 MG Examination Physical Examination General: Patient alert and oriented but has slurred speech and unable to maintain long conversations due to previous stroke. Patient following commands. HEENT: Normocephalic, atraumatic, moist mucous membranes Respiratory/pulmonary: There is decreased bilateral breath sounds on both lung sanchez and mild crackles on right lower lobe. Patient was having mild wheezes as well. Currently requiring 4 L of oxygen through nasal cannula Cardiovascular: Normal heart sounds S1 and S2 with no associated murmurs Abdomen: Abdomen nondistended, there is no pain to palpation in any of the abdominal quadrants, no palpable masses. Extremities: There is no peripheral edema present at the lower extremities. Peripheral Pulses: 3+ Radial (R). 3+ Radial (L). 3+ Dorsalis pedis (R). 3+ Dorsalis pedis(L) Skin: No rashes or pruritus, there is no sacral edema present at this time. Neurological: Patient has neurologic deficits due to previous stroke which involve slurred speech and right upper and lower extremity weakness. laboratory and microbiology Laboratory Tests 09/07/24 06:04 Test 09/07/24 06:04 Range/Units Serum Glucose 125 H 74-106 mg/dL Microbiology Date/Time Source Procedure Growth Status 09/06/24 06:59 Nose MRSA Screen - Final Complete 09/05/24 22:07 Blood Blood Culture - Preliminary NO GROWTH AFTER 24 HOURS OF INCUBATION. Resulted Problem List/Assessment/Plan Problem List/Assessment/Plan Assessment/plan Acute hypoxic respiratory failure likely due to right lower lobe Gram-positive/Gram-negative pneumonia Acute COPD exacerbation Sepsis likely due to above R/O Tuberculosis -initial chest x-ray showed right lower lobe opacities most likely compatible with consolidation -currently requiring 4 L of oxygen through nasal cannula -Continue IV ceftriaxone and azithromycin, transition azithro to PO -Continue methylprednisolone IV 40 mg b.i.d. -Continue respiratory therapy with albuterol and ipratropium med nebs -Ordered quantiferon TB test (unlikely), still pending -monitor saturation closely Ruled out lower ext DVT -lower extremity venous Doppler showed no evidence of DVT Hypothyroidism -TSH came back at 63.84, ordered free T4 which came back in the lower level of normal 0.89 -Continue levothyroxine at 75mcg QAM - explained that she was taking the medication with other meds as well, which could explain a poor absorption even on a correct dosage. Provided correct proper way of administration. History of multiple CVAs with neurologic deficits in the right upper and lower extremity weakness -continue Plavix 75 mg daily -continue atorvastatin 40 mg daily Primary hypertension -continue amlodipine 10 mg daily -monitor blood pressure closely Dyslipidemia -ordered lipid panel -continue atorvastatin 40 mg daily Current smoker with nicotine dependence -nicotine patch 14 g daily -encouraged on smoking cessation Goals of care discussed with the patient and at bedside for >25min Plan discussed with Dr. William Plan discussed with: Patient, Other () My Orders My Orders Orders - EDUARDO SAAB Procedure Category Date Status Time Methylprednisolone PHA 09/06/24 In Process Sod Succ (Solu Medrol 22:00 Levothyroxine Tablet PHA 09/07/24 In Process (Synthroid Tablet) 06:00 Quantiferon-Tb Gold LAB 09/06/24 In Process 11:[address] 09/06/24 Resulted Contrast 12:19 Docusate Sodium PHA 09/07/24 In Process Capsule (Colace 10:00 Dietary Evaluation Review Comments: 1) Advance to cardiac diet as medically feasible 2) Continue current plan of care Expected Outcomes/Goals: To meet >75% estimated needs Fu 2-3 days Date of Service: Sep 07, 2024 Billing Provider: DELANEY WILLIAM DO Common Visit Codes: [id number] INP/OBS CARE(HIGH) EDUARDO SAAB RESIDENT Sep 07, 2024 10:57 DELANEY WILLIAM DO Sep 08, 2024 22:25
--- NOTE | 2024-09-07 12:13 | DVHPN2 ---
Progress Note - Dictate Date Seen: Sep 07, 2024 Has the PT tested + for MRSA If YES, has PT been informed?: No Medical Necessity Reason Pt with a Central, PICC or Fol: No vital signs Vital Sign Date Time Temp Pulse Resp B/P (MAP) Pulse Ox O2 Delivery O2 Flow Rate FiO2 09/07/24 11:14 96 Oxymizer 8 N/A 09/07/24 11:14 71 16 09/07/24 09:55 111/54 09/07/24 09:00 98.2 98.2 Total Intake and Output 09/06/24 09/06/24 09/07/24 15:00 23:00 07:00 Intake Total 300 ml 240 ml Balance 300 ml 240 ml medications Current Medications Medications Dose Ordered Sig/Mihai Route Start Time Stop Time Status Last Admin Dose Admin Ipratropium [place] 0.5 mg Q4HWA NEB 09/06/24 06:00 09/07/24 11:14 0.5 MG Ceftriaxone Sodium 50 ml @ 100 mls/hr DAILY@09 IV 09/06/24 09:00 09/07/24 09:51 100 MLS/HR Amlodipine Besylate 10 mg DAILY PO 09/06/24 10:00 09/07/24 09:55 10 MG Citalopram Hydrobromide 20 mg DAILY PO 09/06/24 10:00 09/07/24 09:56 20 MG Atorvastatin Calcium 40 mg HS PO 09/06/24 22:00 09/06/24 21:41 40 MG Clopidogrel Bisulfate 75 mg DAILY PO 09/06/24 10:00 09/07/24 09:55 75 MG Enoxaparin Sodium 40 mg DAILY SC 09/06/24 10:00 09/07/24 09:57 40 MG Pantoprazole Sodium 40 mg DAILY IV 09/06/24 03:30 09/07/24 09:54 40 MG Nicotine 1 patch DAILY TD 09/07/24 10:00 09/07/24 09:52 1 PATCH Albuterol 2.5 mg Q4HWA NEB 09/06/24 06:00 09/07/24 11:14 2.5 MG Methylprednisolone Sodium Succinate 40 mg BID IV 09/06/24 22:00 09/07/24 09:53 40 MG Levothyroxine Sodium 75 mcg QAM@0600 PO 09/07/24 06:00 09/07/24 06:10 75 MCG Docusate Sodium 100 mg BID PO 09/07/24 10:00 09/07/24 09:54 100 MG Azithromycin 500 mg DAILY PO 09/07/24 11:01 laboratory and microbiology Laboratory Tests 09/07/24 06:04 Test 09/07/24 06:04 Range/Units Serum Glucose 125 H 74-106 mg/dL Assessment/Plan Impression: Acute hypoxic respiratory failure Dependence on supplemental oxygen Acute COPD exacerbation Hemoptysis Rule out TB Pneumonia Nicotine dependence Patient seen and examined Events Low oxygen requirements On 4 liters nasal cannula No acute events Labs and imaging reviewed CT of the chest shows emphysema, no discreet lesions TB unlikely Plan: Supplemental oxygen Titrate to keep O2 sats above 92%. Taper O2 as tolerated. Induction of sputum for cultures Continue bronchodilators. Continue antibiotics IV steroids Incentive spirometry Antitussive for cough Monitor renal function. Monitor electrolytes Supplement as necessary. Monitor ins and outs. DVT prophylaxis. Dietary Evaluation Review Comments: 1) Advance to cardiac diet as medically feasible 2) Continue current plan of care Expected Outcomes/Goals: To meet >75% estimated needs Fu 2-3 days Plan discussed with: Patient JOSH CHUNG MD Sep 07, 2024 12:13
[2024-09-07] MEDS: AZITHROMYCIN 250 MG TAB PO SCH (12:51)
[2024-09-07] MEDS: SODIUM CHLORIDE 0.9% 500 ML IV SCH (15:30)
[2024-09-07 18:52] LABS: Urine Bacteria FEW /hpf (None Seen); Urine Blood Negative /uL (Negative); Urine Clarity Clear (Clear); Urine Color Colorless (Yellow); Urine Protein, UAD Negative (Negative); Urine Specific Gravity 1.005 (1.001-1.035); Urine Squamous Epithelial Cell FEW /hpf (<5); Urine Urobilinogen Normal (Negative); Urine WBC 1 /HPF (0-5)
[2024-09-07 19:06] LABS: Amphetamine Screen, Urine Neg (NEGATIVE); Barbiturate Scree,Urine Neg (NEGATIVE); Benzodiazephine Screen, Urine Neg (NEGATIVE); Cannabinoid Screen, Urine Neg (NEGATIVE); Cocaine Screen, Urine Neg (NEGATIVE); Opiate Scree,Urine Neg (NEGATIVE); Phencyclidine Screen, Urine Neg (NEGATIVE)
[2024-09-08] VITALS (18 sets, daily range): BP systolic 104–118; BP diastolic 49–65; PULSE 59–80; RESP 16–22; TEMP 97.4–98.5; O2SAT 90–98
[2024-09-08 06:36] LABS: Anion Gap 10 (5-15); Potassium 4.3 mmol/L (3.5-5.1); Sodium 137 mmol/L (136-145)
[2024-09-08 06:37] LABS: Calcium 9.6 mg/dL (8.7-10.4)
[2024-09-08 06:42] LABS: BUN/Creatinine Ratio 16.7 (10.0-20.0); Blood Urea Nitrogen 14 mg/dL (9-23)
[2024-09-08 06:46] LABS: Basophils # (auto) 0 10 ^3/uL (0-0.2); Basophils % (auto) 0.1 % (0.0-2.0); Eosinophils # (auto) 0 10 ^3/uL (0-0.8); Hemoglobin 12.2 g/dL (12.2-16.2); Lymphocytes # (auto) 0.7 10 ^3/uL (0.4-5.4); Lymphocytes % (auto) 4.9 % (10.0-50.0); Mean Corpuscular Hemoglobin 31.7 pg (28.0-32.0); Mean Corpuscular Volume 99.1 fL (80.0-100.0); Monocytes # (auto) 0.4 10 ^3/uL (0-1.3); Monocytes % (auto) 2.7 % (0.0-12.0); Neutrophils # (auto) 13.2 10 ^3/uL (1.6-8.6); Neutrophils % (auto) 92.3 % (37.0-80.0); Platelet Count (auto) 194 10^3/uL (140-450); Red Blood Cells 3.83 10^6/uL (4.0-5.20); Red Cell Distribution Width 14.8 % (11.8-14.3); White Blood Cell 14.3 10^3/uL (4.4-10.8)
[2024-09-08 06:51] LABS: Carbon Dioxide 18 mmol/L (20-31); Chloride 109 mmol/L (98-107); Glucose 121 mg/dL (74-106)
--- NOTE | 2024-09-08 12:25 | DVHPN2 ---
Progress Note - Dictate Date Seen: Sep 08, 2024 Has the PT tested + for MRSA If YES, has PT been informed?: No Medical Necessity Reason Pt with a Central, PICC or Fol: No vital signs Vital Sign Date Time Temp Pulse Resp B/P (MAP) Pulse Ox O2 Delivery O2 Flow Rate FiO2 09/08/24 10:03 80 22 92 09/08/24 09:46 Oxymizer 10.0 09/08/24 09:46 N/A 09/08/24 09:22 97.4 112/65 (81) 97.4 Total Intake and Output 09/07/24 09/07/24 09/08/24 15:00 23:00 07:00 Intake Total 350 ml 200 ml Balance 350 ml 200 ml medications Current Medications Medications Dose Ordered Sig/Mihai Route Start Time Stop Time Status Last Admin Dose Admin Ipratropium [place] [employer] 0.5 mg Q4HWA NEB 09/06/24 06:00 09/08/24 09:46 0.5 MG Ceftriaxone Sodium 50 ml @ 100 mls/hr DAILY@09 IV 09/06/24 09:00 09/08/24 08:56 100 MLS/HR Amlodipine Besylate 10 mg DAILY PO 09/06/24 10:00 09/08/24 08:59 10 MG Citalopram Hydrobromide 20 mg DAILY PO 09/06/24 10:00 09/08/24 08:57 20 MG Atorvastatin Calcium 40 mg HS PO 09/06/24 22:00 09/07/24 21:03 40 MG Clopidogrel Bisulfate 75 mg DAILY PO 09/06/24 10:00 09/08/24 08:57 75 MG Enoxaparin Sodium 40 mg DAILY SC 09/06/24 10:00 09/08/24 08:56 40 MG Pantoprazole Sodium 40 mg DAILY IV 09/06/24 03:30 09/07/24 09:54 40 MG Nicotine 1 patch DAILY TD 09/07/24 10:00 09/08/24 09:28 1 PATCH Albuterol 2.5 mg Q4HWA NEB 09/06/24 06:00 09/08/24 09:46 2.5 MG Methylprednisolone Sodium Succinate 40 mg BID IV 09/06/24 22:00 09/08/24 08:56 40 MG Levothyroxine Sodium 75 mcg QAM@0600 PO 09/07/24 06:00 09/08/24 06:25 75 MCG Docusate Sodium 100 mg BID PO 09/07/24 10:00 09/08/24 08:56 100 MG Azithromycin 500 mg DAILY PO 09/07/24 11:01 09/08/24 08:58 500 MG Sodium Chloride 500 ml @ 75 mls/hr Q6H40M IV 09/07/24 13:30 09/08/24 09:00 75 MLS/HR laboratory and microbiology Laboratory Tests 09/08/24 05:50 Test 09/08/24 05:50 Range/Units Serum Glucose 121 H 74-106 mg/dL Assessment/Plan Impression: Acute hypoxic respiratory failure Dependence on supplemental oxygen Acute COPD exacerbation Hemoptysis Rule out TB Pneumonia Nicotine dependence Patient seen and examined Events Low oxygen requirements On 4 liters nasal cannula No acute events Labs and imaging reviewed CT of the chest shows emphysema, no discreet lesions TB unlikely Plan: Supplemental oxygen Titrate to keep O2 sats above 92%. Taper O2 as tolerated. Induction of sputum for cultures Continue bronchodilators. Continue antibiotics IV steroids Incentive spirometry Antitussive for cough Monitor renal function. Monitor electrolytes Supplement as necessary. Monitor ins and outs. DVT prophylaxis. Dietary Evaluation Review Comments: 1) Advance to cardiac diet as medically feasible 2) Continue current plan of care Expected Outcomes/Goals: To meet >75% estimated needs Fu 2-3 days Plan discussed with: Patient JOSH CHUNG MD Sep 08, 2024 12:25
--- NOTE | 2024-09-08 12:46 | DVHPN2 ---
Subjective The patient is seen and examined at bedside. Complain of shortness a breath. Reviewed: Care Plan, H&P, Labs, Medications, Previous Orders, Radiology Changes from previous H/P or p: No Changes Cardiovascular: Edema Respiratory: Cough, Shortness of breath, SOB with excertion, Hemoptysis Objective Vitals Vital Signs Date Time Temp Pulse Resp B/P (MAP) Pulse Ox O2 Delivery O2 Flow Rate FiO2 09/08/24 10:03 80 22 92 09/08/24 09:46 Oxymizer 10.0 09/08/24 09:46 N/A 09/08/24 09:22 97.4 112/65 (81) 97.4 Intake/Output Intake and Output 09/08/24 07:00 Intake Total 550 ml Balance 550 ml Intake Oral 550 ml # Voids 3 General Appearance: Alert, Cooperative, No acute distress HEENT: Atraumatic, PERRLA, EOMI, Mucous membr. moist/pink Neck: Supple Lungs: Clear to auscultation, Normal air movement Cardiovascular: Regular rate, Normal S1, Normal S2, No murmurs, Gallops, Rubs Neuro: Cranial nerves 3-12 NL Psych/Mental Status: Mental status NL Medications Current Medications Medications Dose Ordered Sig/Mihai Route Start Time Stop Time Status Last Admin Dose Admin Ipratropium [place] 0.5 mg Q4HWA NEB 09/06/24 06:00 09/08/24 09:46 0.5 MG Ceftriaxone Sodium 50 ml @ 100 mls/hr DAILY@09 IV 09/06/24 09:00 09/08/24 08:56 100 MLS/HR Amlodipine Besylate 10 mg DAILY PO 09/06/24 10:00 09/08/24 08:59 10 MG Citalopram Hydrobromide 20 mg DAILY PO 09/06/24 10:00 09/08/24 08:57 20 MG Atorvastatin Calcium 40 mg HS PO 09/06/24 22:00 09/07/24 21:03 40 MG Clopidogrel Bisulfate 75 mg DAILY PO 09/06/24 10:00 09/08/24 08:57 75 MG Enoxaparin Sodium 40 mg DAILY SC 09/06/24 10:00 09/08/24 08:56 40 MG Pantoprazole Sodium 40 mg DAILY IV 09/06/24 03:30 09/07/24 09:54 40 MG Nicotine 1 patch DAILY TD 09/07/24 10:00 09/08/24 09:28 1 PATCH Albuterol 2.5 mg Q4HWA NEB 09/06/24 06:00 09/08/24 09:46 2.5 MG Methylprednisolone Sodium Succinate 40 mg BID IV 09/06/24 22:00 09/08/24 08:56 40 MG Levothyroxine Sodium 75 mcg QAM@0600 PO 09/07/24 06:00 09/08/24 06:25 75 MCG Docusate Sodium 100 mg BID PO 09/07/24 10:00 09/08/24 08:56 100 MG Azithromycin 500 mg DAILY PO 09/07/24 11:01 09/08/24 08:58 500 MG Sodium Chloride 500 ml @ 75 mls/hr Q6H40M IV 09/07/24 13:30 09/08/24 09:00 75 MLS/HR Laboratory Results Laboratory Tests 09/08/24 05:50 Chemistry Test 09/08/24 05:50 Calcium Level 9.6 mg/dL (8.7-10.4) Urinalysis Test 09/07/24 18:30 Urine Color Colorless (Yellow) Urine Clarity Clear (Clear) Urine pH 5.0 (5.0-9.0) Urine Specific [place] 1.005 (1.001-1.035) Urine Protein Negative (Negative) Urine Ketones Negative (Negative) Urine Blood Negative /uL (Negative) Urine Nitrite Negative (Negative) Urine Bilirubin Negative (Negative) Urine Urobilinogen Normal mg/dL (Negative) Urine Leukocyte Esterase Negative /uL (Negative) Urine RBC 1 /hpf (0 - 4) Urine Microscopic WBC 1 /HPF (0-5) Urine Squamous Epithelial Cells Few /hpf (<5) Urine Bacteria Few /hpf (None Seen) H Urine Glucose Normal mg/dL (Normal) Microbiology Microbiology Date/Time Source Procedure Growth Status 09/06/24 06:59 Nose MRSA Screen - Final Complete 09/05/24 22:07 Blood Blood Culture - Preliminary NO GROWTH AFTER 48 HOURS OF INCUBATION. Resulted Labs and/or images reviewed: Labs reviewed by me Assessment/Plan Assessment/Plan Acute hypoxic respiratory failure likely due to right lower lobe Gram-positive/Gram-negative pneumonia Acute COPD exacerbation Sepsis likely due to above R/O Tuberculosis -initial chest x-ray showed right lower lobe opacities most likely compatible with consolidation -currently requiring 4 L of oxygen through nasal cannula -Continue IV ceftriaxone and azithromycin, transition azithro to PO -Continue methylprednisolone IV 40 mg b.i.d. -Continue respiratory therapy with albuterol and ipratropium med nebs -Ordered quantiferon TB test (unlikely), still pending -monitor saturation closely Ruled out lower ext DVT -lower extremity venous Doppler showed no evidence of DVT Hypothyroidism -TSH came back at 63.84, ordered free T4 which came back in the lower level of normal 0.89 -Continue levothyroxine at 75mcg QAM - explained that she was taking the medication with other meds as well, which could explain a poor absorption even on a correct dosage. Provided correct proper way of administration. History of multiple CVAs with neurologic deficits in the right upper and lower extremity weakness -continue Plavix 75 mg daily -continue atorvastatin 40 mg daily Primary hypertension -continue amlodipine 10 mg daily -monitor blood pressure closely Dyslipidemia -ordered lipid panel -continue atorvastatin 40 mg daily Current smoker with nicotine dependence -nicotine patch 14 g daily -encouraged on smoking cessation This medical document was created using an electronic medical record system with [employer] computerized dictation system. Although this document has been carefully reviewed, there may still be some phonetic and typographical errors. These areas are purely typographical due to imperfections of the software programs, and do not reflect any compromise in the patient's medical care. Plan discussed with: Patient, Spouse Date of Service: Sep 08, 2024 Billing Provider: CAMILLE HARO MD Common Visit Codes: [id number] INP/OBS CARE(HIGH) CAMILLE HARO MD Sep 08, 2024 12:46
[2024-09-09] VITALS (20 sets, daily range): BP systolic 124–134; BP diastolic 57–64; PULSE 55–117; RESP 16–20; TEMP 97.5–98.8; O2SAT 92–98
--- NOTE | 2024-09-09 10:29 | DVHPN2 ---
Progress Note - Dictate Date Seen: Sep 09, 2024 Has the PT tested + for MRSA If YES, has PT been informed?: No Medical Necessity Reason Pt with a Central, PICC or Fol: No vital signs Vital Sign Date Time Temp Pulse Resp B/P (MAP) Pulse Ox O2 Delivery O2 Flow Rate FiO2 09/09/24 10:00 95 Nasal Cannula* 5 40 09/09/24 09:29 132/59 09/09/24 09:00 98.1 69 18 98.1 Total Intake and Output 09/08/24 09/08/24 09/09/24 15:00 23:00 07:00 Intake Total 50 ml 450 ml 300 ml Balance 50 ml 450 ml 300 ml medications Current Medications Medications Dose Ordered Sig/Mihai Route Start Time Stop Time Status Last Admin Dose Admin Ipratropium [place] 0.5 mg Q4HWA NEB 09/06/24 06:00 09/09/24 07:34 0.5 MG Ceftriaxone Sodium 50 ml @ 100 mls/hr DAILY@09 IV 09/06/24 09:00 09/09/24 09:28 100 MLS/HR Amlodipine Besylate 10 mg DAILY PO 09/06/24 10:00 09/09/24 09:29 10 MG Citalopram Hydrobromide 20 mg DAILY PO 09/06/24 10:00 09/09/24 09:30 20 MG Atorvastatin Calcium 40 mg HS PO 09/06/24 22:00 09/08/24 21:09 40 MG Clopidogrel Bisulfate 75 mg DAILY PO 09/06/24 10:00 09/09/24 09:30 75 MG Enoxaparin Sodium 40 mg DAILY SC 09/06/24 10:00 09/09/24 09:28 40 MG Pantoprazole Sodium 40 mg DAILY IV 09/06/24 03:30 09/09/24 09:28 40 MG Nicotine 1 patch DAILY TD 09/07/24 10:00 09/09/24 09:28 1 PATCH Albuterol 2.5 mg Q4HWA NEB 09/06/24 06:00 09/09/24 07:34 2.5 MG Methylprednisolone Sodium Succinate 40 mg BID IV 09/06/24 22:00 09/09/24 09:29 40 MG Levothyroxine Sodium 75 mcg QAM@0600 PO 09/07/24 06:00 09/09/24 06:35 75 MCG Docusate Sodium 100 mg BID PO 09/07/24 10:00 09/09/24 09:30 100 MG Azithromycin 500 mg DAILY PO 09/07/24 11:01 09/09/24 09:30 500 MG Sodium Chloride 500 ml @ 75 mls/hr Q6H40M IV 09/07/24 13:30 09/09/24 05:25 75 MLS/HR laboratory and microbiology Laboratory Tests 09/08/24 05:50 Test 09/08/24 05:50 Range/Units Serum Glucose 121 H 74-106 mg/dL Assessment/Plan Impression: Acute hypoxic respiratory failure Dependence on supplemental oxygen Acute COPD exacerbation Hemoptysis Rule out TB Pneumonia Nicotine dependence Patient seen and examined Events Low oxygen requirements On 4 liters nasal cannula No acute events Labs and imaging reviewed CT of the chest shows emphysema, no discreet lesions TB unlikely Plan: Supplemental oxygen Titrate to keep O2 sats above 92%. Taper O2 as tolerated. Induction of sputum for cultures Continue bronchodilators. Continue antibiotics IV steroids Incentive spirometry Antitussive for cough Monitor renal function. Monitor electrolytes Supplement as necessary. Monitor ins and outs. DVT prophylaxis. Dietary Evaluation Review Comments: 1) Advance to cardiac diet as medically feasible 2) Continue current plan of care Expected Outcomes/Goals: To meet >75% estimated needs Fu 2-3 days Plan discussed with: Patient JOSH CHUNG MD Sep 09, 2024 10:29
--- NOTE | 2024-09-09 22:19 | DVHPN2 ---
Subjective The patient is seen and examined at bedside. No complaint today. Reviewed: Care Plan, H&P, Labs, Medications, Previous Orders, Radiology Changes from previous H/P or p: No Changes Cardiovascular: Edema Respiratory: Cough, Shortness of breath, SOB with excertion, Hemoptysis Objective Vitals Vital Signs Date Time Temp Pulse Resp B/P (MAP) Pulse Ox O2 Delivery O2 Flow Rate FiO2 09/09/24 21:57 76 18 98 09/09/24 21:51 Nasal Cannula* 4 36 09/09/24 17:00 97.5 125/63 (83) 97.5 Intake/Output Intake and Output 09/09/24 07:00 Intake Total 800 ml Balance 800 ml Intake Oral 750 ml IV Total 50 ml # Voids 6 General Appearance: Alert, Cooperative, No acute distress HEENT: Atraumatic, PERRLA, EOMI, Mucous membr. moist/pink Neck: Supple Lungs: Clear to auscultation, Normal air movement Cardiovascular: Regular rate, Normal S1, Normal S2, No murmurs, Gallops, Rubs Abdomen: Normal bowel sounds, Soft, No tenderness Neuro: Cranial nerves 3-12 NL Psych/Mental Status: Mental status NL Medications Current Medications Medications Dose Ordered Sig/Mihai Route Start Time Stop Time Status Last Admin Dose Admin Ipratropium Norco 0.5 mg Q4HWA NEB 09/06/24 06:00 09/09/24 21:50 0.5 MG Ceftriaxone Sodium 50 ml @ 100 mls/hr DAILY@09 IV 09/06/24 09:00 09/09/24 09:28 100 MLS/HR Amlodipine Besylate 10 mg DAILY PO 09/06/24 10:00 09/09/24 09:29 10 MG Citalopram Hydrobromide 20 mg DAILY PO 09/06/24 10:00 09/09/24 09:30 20 MG Atorvastatin Calcium 40 mg HS PO 09/06/24 22:00 09/09/24 21:03 40 MG Clopidogrel Bisulfate 75 mg DAILY PO 09/06/24 10:00 09/09/24 09:30 75 MG Enoxaparin Sodium 40 mg DAILY SC 09/06/24 10:00 09/09/24 09:28 40 MG Pantoprazole Sodium 40 mg DAILY IV 09/06/24 03:30 09/09/24 09:28 40 MG Nicotine 1 patch DAILY TD 09/07/24 10:00 09/09/24 09:28 1 PATCH Albuterol 2.5 mg Q4HWA NEB 09/06/24 06:00 09/09/24 21:51 2.5 MG Methylprednisolone Sodium Succinate 40 mg BID IV 09/06/24 22:00 09/09/24 21:02 40 MG Levothyroxine Sodium 75 mcg QAM@0600 PO 09/07/24 06:00 09/09/24 06:35 75 MCG Docusate Sodium 100 mg BID PO 09/07/24 10:00 09/09/24 21:03 100 MG Azithromycin 500 mg DAILY PO 09/07/24 11:01 09/09/24 09:30 500 MG Sodium Chloride 500 ml @ 75 mls/hr Q6H40M IV 09/07/24 13:30 09/09/24 20:37 75 MLS/HR Laboratory Results Laboratory Tests 09/08/24 05:50 Urinalysis Test 09/07/24 18:30 Urine Color Colorless (Yellow) Urine Clarity Clear (Clear) Urine pH 5.0 (5.0-9.0) Urine Specific [place] 1.005 (1.001-1.035) Urine Protein Negative (Negative) Urine Ketones Negative (Negative) Urine Blood Negative /uL (Negative) Urine Nitrite Negative (Negative) Urine Bilirubin Negative (Negative) Urine Urobilinogen Normal mg/dL (Negative) Urine Leukocyte Esterase Negative /uL (Negative) Urine RBC 1 /hpf (0 - 4) Urine Microscopic WBC 1 /HPF (0-5) Urine Squamous Epithelial Cells Few /hpf (<5) Urine Bacteria Few /hpf (None Seen) H Urine Glucose Normal mg/dL (Normal) Microbiology Microbiology Date/Time Source Procedure Growth Status 09/06/24 06:59 Nose MRSA Screen - Final Complete 09/05/24 22:07 Blood Blood Culture - Preliminary NO GROWTH AFTER 72 HOURS OF INCUBATION. Resulted Labs and/or images reviewed: Labs reviewed by me Assessment/Plan Assessment/Plan Acute hypoxic respiratory failure likely due to right lower lobe Gram-positive/Gram-negative pneumonia Acute COPD exacerbation Sepsis likely due to above R/O Tuberculosis -initial chest x-ray showed right lower lobe opacities most likely compatible with consolidation -currently requiring 4 L of oxygen through nasal cannula -Continue IV ceftriaxone and azithromycin, transition azithro to PO -Continue methylprednisolone IV 40 mg b.i.d. -Continue respiratory therapy with albuterol and ipratropium med nebs -Ordered quantiferon TB test (unlikely), still pending -monitor saturation closely Ruled out lower ext DVT -lower extremity venous Doppler showed no evidence of DVT Hypothyroidism -TSH came back at 63.84, ordered free T4 which came back in the lower level of normal 0.89 -Continue levothyroxine at 75mcg QAM - explained that she was taking the medication with other meds as well, which could explain a poor absorption even on a correct dosage. Provided correct proper way of administration. 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 Although this document has been carefully reviewed, there may still be some phonetic and typographical errors. These areas are purely typographical due to imperfections of the software programs, and do not reflect any compromise in the patient's medical care. Plan discussed with: Patient Date of Service: Sep 09, 2024 Billing Provider: CAMILLE HARO MD Common Visit Codes: [id number] INP/OBS CARE(HIGH) CAMILLE HARO MD Sep 09, 2024 22:18
[2024-09-10] VITALS (16 sets, daily range): BP systolic 125–155; BP diastolic 66–93; PULSE 6–86; RESP 15–19; TEMP 97.7–98.1; O2SAT 90–100
[2024-09-10 07:22] LABS: Basophils # (auto) 0 10 ^3/uL (0-0.2); Basophils % (auto) 0.1 % (0.0-2.0); Eosinophils # (auto) 0 10 ^3/uL (0-0.8); Hemoglobin 13.1 g/dL (12.2-16.2); Lymphocytes # (auto) 1.3 10 ^3/uL (0.4-5.4); Lymphocytes % (auto) 9.2 % (10.0-50.0); Mean Corpuscular Hemoglobin 31.2 pg (28.0-32.0); Mean Corpuscular Hgb Conc. 30.5 g/dL (32.0-36.0); Mean Corpuscular Volume 102.4 fL (80.0-100.0); Monocytes # (auto) 0.6 10 ^3/uL (0-1.3); Monocytes % (auto) 4.6 % (0.0-12.0); Neutrophils # (auto) 11.8 10 ^3/uL (1.6-8.6); Neutrophils % (auto) 86.1 % (37.0-80.0); Nucleated Red Blood Cells % 0.2 %; Platelet Count (auto) 187 10^3/uL (140-450); Red Cell Distribution Width 15.3 % (11.8-14.3); White Blood Cell 13.7 10^3/uL (4.4-10.8)
[2024-09-10 07:48] LABS: Alanine Aminotransferase 15 U/L (7-40); Albumin 4.1 g/dL (3.2-4.8); Alkaline Phosphatase 69 U/L (46-116); Anion Gap 9 (5-15); BUN/Creatinine Ratio 19.7 (10.0-20.0); Bilirubin, Total 0.6 mg/dL (0.2-1.0); Blood Urea Nitrogen 15 mg/dL (9-23); Calcium 9.5 mg/dL (8.7-10.4); Carbon Dioxide 22 mmol/L (20-31); Chloride 106 mmol/L (98-107); Potassium 4.4 mmol/L (3.5-5.1); Sodium 137 mmol/L (136-145); Total Protein 6.4 g/dL (5.7-8.2)
[2024-09-10 07:49] LABS: Aspartate Aminotransferase 12 U/L (13-40); Glucose 108 mg/dL (74-106)
[2024-09-10 09:52] LABS: Base Excess 2.9 mmol/L (-2.0-3.0)
--- NOTE | 2024-09-10 12:33 | DVHPN2 ---
Progress Note - Dictate Date Seen: Sep 10, 2024 Has the PT tested + for MRSA If YES, has PT been informed?: No Medical Necessity Reason Pt with a Central, PICC or Fol: No vital signs Vital Sign Date Time Temp Pulse Resp B/P (MAP) Pulse Ox O2 Delivery O2 Flow Rate FiO2 09/10/24 09:50 77 18 97 09/10/24 09:38 Room Air* 0 21 09/10/24 09:19 145/93 09/10/24 09:00 97.9 97.9 Total Intake and Output 09/09/24 09/09/24 09/10/24 15:00 23:00 07:00 Intake Total 50 ml 480 ml 500 ml Balance 50 ml 480 ml 500 ml medications Current Medications Medications Dose Ordered Sig/Mihai Route Start Time Stop Time Status Last Admin Dose Admin Ipratropium [place] 0.5 mg Q4HWA NEB 09/06/24 06:00 09/10/24 09:38 0.5 MG Ceftriaxone Sodium 50 ml @ 100 mls/hr DAILY@09 IV 09/06/24 09:00 09/10/24 09:17 100 MLS/HR Amlodipine Besylate 10 mg DAILY PO 09/06/24 10:00 09/10/24 09:19 10 MG Citalopram Hydrobromide 20 mg DAILY PO 09/06/24 10:00 09/09/24 09:30 20 MG Atorvastatin Calcium 40 mg HS PO 09/06/24 22:00 09/09/24 21:03 40 MG Clopidogrel Bisulfate 75 mg DAILY PO 09/06/24 10:00 09/10/24 09:19 75 MG Enoxaparin Sodium 40 mg DAILY SC 09/06/24 10:00 09/10/24 09:18 40 MG Pantoprazole Sodium 40 mg DAILY IV 09/06/24 03:30 09/10/24 09:17 40 MG Nicotine 1 patch DAILY TD 09/07/24 10:00 09/10/24 09:18 1 PATCH Albuterol 2.5 mg Q4HWA NEB 09/06/24 06:00 09/10/24 09:38 2.5 MG Methylprednisolone Sodium Succinate 40 mg BID IV 09/06/24 22:00 09/10/24 09:17 40 MG Levothyroxine Sodium 75 mcg QAM@0600 PO 09/07/24 06:00 09/10/24 06:54 75 MCG Docusate Sodium 100 mg BID PO 09/07/24 10:00 09/10/24 09:19 100 MG Azithromycin 500 mg DAILY PO 09/07/24 11:01 09/10/24 09:19 500 MG Sodium Chloride 500 ml @ 75 mls/hr Q6H40M IV 09/07/24 13:30 09/10/24 09:16 75 MLS/HR laboratory and microbiology Laboratory Tests 09/10/24 06:30 Test 09/10/24 06:30 Range/Units Serum Glucose 108 H 74-106 mg/dL Assessment/Plan Impression: Acute hypoxic respiratory failure Dependence on supplemental oxygen Acute COPD exacerbation Hemoptysis Rule out TB Pneumonia Nicotine dependence Patient seen and examined Events Low oxygen requirements On 4 liters nasal cannula No acute events Labs and imaging reviewed CT of the chest shows emphysema, no discreet lesions TB unlikely Plan: Supplemental oxygen Titrate to keep O2 sats above 92%. Taper O2 as tolerated. Induction of sputum for cultures Continue bronchodilators. Continue antibiotics IV steroids Incentive spirometry Antitussive for cough Monitor renal function. Monitor electrolytes Supplement as necessary. Monitor ins and outs. DVT prophylaxis. Dietary Evaluation Review Comments: 1) Advance to cardiac diet as medically feasible 2) Continue current plan of care Expected Outcomes/Goals: To meet >75% estimated needs Fu 2-3 days Plan discussed with: Patient, Spouse JOSH CHUNG MD Sep 10, 2024 12:33
--- NOTE | 2024-09-10 13:47 | DVHPNRES ---
Progress Note Date Seen: Sep 10, 2024 Resident Creating Document: EDURADO SAAB RESIDENT Has the PT tested + for MRSA If YES, has PT been informed?: No Medical Necessity Reason Pt with a Central, PICC or Fol: No Subjective Review of Systems This is a 64-year-old female with past medical history of multiple strokes, last stroke was in 2018 with a hemorrhagic stroke bilaterally which had neurologic residual deficits in the right upper and right lower extremities and slurred speech, hypertension, hyperlipidemia, COPD (no home oxygen) \, hypothyroidism who presented to the ED brought by her due to shortness of breath, cough and hemoptysis. The states that all symptoms started three days before coming to the ED. 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 Patient and both denied any episode of fever/chills, weight loss, chest pain, abdominal tenderness, lower extremity swelling or any other symptoms. Upon admission, initial CBC showed a WBC of 11.3 but BNP was grossly unremarkable. TSH was significantly elevated at 63.84, we ordered free T4. Initial chest x-ray was showing right lower lobe opacities which could be compatible with consolidation/pneumonia. Patient was started on IV ceftriaxone and azithromycin. Patient was admitted for further assessment and management. Patient seen and examined at bedside. Patient is currently on 3 L of oxygen through nasal cannula. Per and nurse patient was having an episode of delirium with slight confusion. We will perform an ABG on room air which was showing a PaO2 of 48.6, patient qualifies for home oxygen. Social service was placed for home oxygen and also family is requesting portable oxygen machine. Meanwhile QuantiFERON test is still pending for tuberculosis. We will continue IV ceftriaxone and p.o. azithromycin at this time. We will decrease methylprednisolone 40 mg IV b.i.d. to 20 mg IV daily. Patient has no additional complaints at this time. ROS Constitutional: Denies weight loss, fever and chills. HEENT: Denies changes in vision and hearing. Respiratory: Denies shortness of breath and cough Cardiovascular: Denies chest discomfort or palpitations GI: Denies abdominal pain, nausea, vomiting and diarrhea. : Denies dysuria and urinary frequency. Musculoskeletal: Denies myalgias and joint pain Skin: Denies rash and pruritus. Neurological: Denies dizziness, headache, vision or hearing problems Objective vital signs Vital Sign Date Time Temp Pulse Resp B/P (MAP) Pulse Ox O2 Delivery O2 Flow Rate FiO2 09/10/24 12:44 97.7 75 17 129/80 (96) 91 97.7 09/10/24 09:38 Room Air* 0 21 Total Intake and Output 09/09/24 09/09/24 09/10/24 15:00 23:00 07:00 Intake Total 50 ml 480 ml 500 ml Balance 50 ml 480 ml 500 ml medications Current Medications Medications Dose Ordered Sig/Mihai Route Start Time Stop Time Status Last Admin Dose Admin Ipratropium [place] 0.5 mg Q4HWA NEB 09/06/24 06:00 09/10/24 09:38 0.5 MG Ceftriaxone Sodium 50 ml @ 100 mls/hr DAILY@09 IV 09/06/24 09:00 09/10/24 09:17 100 MLS/HR Amlodipine Besylate 10 mg DAILY PO 09/06/24 10:00 09/10/24 09:19 10 MG Citalopram Hydrobromide 20 mg DAILY PO 09/06/24 10:00 09/09/24 09:30 20 MG Atorvastatin Calcium 40 mg HS PO 09/06/24 22:00 09/09/24 21:03 40 MG Clopidogrel Bisulfate 75 mg DAILY PO 09/06/24 10:00 09/10/24 09:19 75 MG Enoxaparin Sodium 40 mg DAILY SC 09/06/24 10:00 09/10/24 09:18 40 MG Pantoprazole Sodium 40 mg DAILY IV 09/06/24 03:30 09/10/24 09:17 40 MG Nicotine 1 patch DAILY TD 09/07/24 10:00 09/10/24 09:18 1 PATCH Albuterol 2.5 mg Q4HWA NEB 09/06/24 06:00 09/10/24 09:38 2.5 MG Methylprednisolone Sodium Succinate 40 mg BID IV 09/06/24 22:00 09/10/24 09:17 40 MG Levothyroxine Sodium 75 mcg QAM@0600 PO 09/07/24 06:00 09/10/24 06:54 75 MCG Docusate Sodium 100 mg BID PO 09/07/24 10:00 09/10/24 09:19 100 MG Azithromycin 500 mg DAILY PO 09/07/24 11:01 09/10/24 09:19 500 MG Sodium Chloride 500 ml @ 75 mls/hr Q6H40M IV 09/07/24 13:30 09/10/24 09:16 75 MLS/HR Examination Physical Examination General: Patient alert and oriented but has slurred speech and unable to maintain long conversations due to previous stroke. Patient following commands. HEENT: Normocephalic, atraumatic, moist mucous membranes Respiratory/pulmonary: There is decreased bilateral breath sounds on both lung sanchez and mild crackles on right lower lobe. Patient was having mild wheezes as well. Currently requiring 3 L of oxygen through nasal cannula Cardiovascular: Normal heart sounds S1 and S2 with no associated murmurs Abdomen: Abdomen nondistended, there is no pain to palpation in any of the abdominal quadrants, no palpable masses. Extremities: There is no peripheral edema present at the lower extremities. Peripheral Pulses: 3+ Radial (R). 3+ Radial (L). 3+ Dorsalis pedis (R). 3+ Dorsalis pedis(L) Skin: No rashes or pruritus, there is no sacral edema present at this time. Neurological: Patient has neurologic deficits due to previous stroke which involve slurred speech and right upper and lower extremity weakness. laboratory and microbiology Laboratory Tests 09/10/24 06:30 Test 09/10/24 06:30 Range/Units Serum Glucose 108 H 74-106 mg/dL Microbiology Date/Time Source Procedure Growth Status 09/06/24 06:59 Nose MRSA Screen - Final Complete 09/05/24 22:07 Blood Blood Culture - Preliminary NO GROWTH AFTER 72 HOURS OF INCUBATION. Resulted Labs and/or images reviewed: Labs reviewed by me, Image(s) reviewed by me Problem List/Assessment/Plan Problem List/Assessment/Plan Assessment/plan Acute hypoxic respiratory failure likely due to right lower lobe Gram-positive/Gram-negative pneumonia Acute COPD exacerbation Sepsis likely due to above R/O Tuberculosis -initial chest x-ray showed right lower lobe opacities most likely compatible with consolidation -currently requiring 4 L of oxygen through nasal cannula -Continue IV ceftriaxone and azithromycin, transition azithro to PO -Decrease methylprednisolone to IV 20 mg daily -Continue respiratory therapy with albuterol and ipratropium med nebs -Ordered QuantiFERON TB test (unlikely), still pending -monitor saturation closely -ABG on room air showed a PaO2 of 48.6, patient qualifies for home oxygen at 2 L of oxygen through nasal cannula -social service was requested for home oxygen and for possible portable oxygen machine requested by family. Ruled out lower ext DVT -lower extremity venous Doppler showed no evidence of DVT Hypothyroidism -TSH came back at 63.84, ordered free T4 which came back in the lower level of normal 0.89 -Continue levothyroxine at 75mcg QAM - explained that she was taking the medication with other meds as well, which could explain a poor absorption even on a correct dosage. Provided correct proper way of administration. 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 Ornelas Plan discussed with: Patient, Other (Nurse) My Orders My Orders Orders - EDUARDO SAAB RESIDENT Procedure Category Date Status Time Respiratory Culture RANDALL 09/10/24 Logged W/ Gs 05:34 Abg W/ Co-Ox RT 09/10/24 Logged 10:30 * Web Site Admin CONS 09/10/24 Transmitted Consult Dietary Evaluation Review Comments: 1) Advance to cardiac diet as medically feasible 2) Continue current plan of care Expected Outcomes/Goals: To meet >75% estimated needs Fu 2-3 days Addendum Addendum Addendum I was physically present for the parks portions of the service provided to patient by THE RESIDENT. I have reviewed the documentation, discussed the case with resident and agree with the resident's documentation except as noted. Also the patient's clinical case was discussed with the patient's nurse. This medical document was created using an electronic medical record system with computerized dictation system. Although this document has been carefully reviewed, there might still be some phonetic and typographical errors. These areas are purely typographical due to imperfections of the software programs, and do not reflect any compromise in the patient's medical care. Late signature. Date of Service: Sep 10, 2024 Billing Provider: NIALL ORNELAS MD Common Visit Codes: [id number] INP/OBS CARE(HIGH) Secondary Visit Codes: [id number] CARE PLAN 30 MINUTES (20 minutes) EDUARDO SAAB RESIDENT Sep 10, 2024 13:47 NIALL ORNELAS MD Sep 12, 2024 08:32
[2024-09-11] VITALS (14 sets, daily range): BP systolic 111–156; BP diastolic 61–70; PULSE 63–82; RESP 16–20; TEMP 36.6; O2SAT 90–100
[2024-09-11 02:06] LABS: QuantiFERON-TB Gold Plus Negative (Negative)
[2024-09-11 06:52] LABS: Calcium 10.1 mg/dL (8.7-10.4); Chloride 103 mmol/L (98-107); Sodium 139 mmol/L (136-145)
[2024-09-11 06:53] LABS: Anion Gap 10 (5-15); Carbon Dioxide 26 mmol/L (20-31)
[2024-09-11 06:58] LABS: BUN/Creatinine Ratio 15.6 (10.0-20.0); Blood Urea Nitrogen 14 mg/dL (9-23); Glucose 82 mg/dL (74-106)
[2024-09-11 07:08] LABS: Hematocrit 43.1 % (36.0-46.0); Hemoglobin 14.3 g/dL (12.2-16.2); Mean Corpuscular Hemoglobin 31.6 pg (28.0-32.0); Mean Corpuscular Hgb Conc. 33.1 g/dL (32.0-36.0); Mean Corpuscular Volume 95.5 fL (80.0-100.0); Platelet Count (auto) 258 10^3/uL (140-450); Red Blood Cells 4.51 10^6/uL (4.0-5.20); White Blood Cell 17.8 10^3/uL (4.4-10.8)
[2024-09-11 07:17] LABS: Basophils % (manual) 0 (0.0-2.0); Blast Cells 0; Eosinophils % (manual) 0 (0-7); Metamyelocytes % 0; Myelocytes % 0; Promyelocytes % 0; Reactive Lymphocytes 0
[2024-09-11 08:28] LABS: Band Neutrophils % (manual) 2; Lymphocytes % (manual) 17 (10.0-50.0); Monocytes % (manual) 8 (0-12); Platelet Estimate Adequate
[2024-09-11] MEDS: methylPREDNISolone SOD SUCC 40 MG/ML VL IV SCH (09:10)
[2024-09-11] MEDS ORDERED: LEVO750T40 PO (10:43)
--- NOTE | 2024-09-11 10:57 | DVHDSRES ---
Discharge Summary Date of Admission Resident Creating Document: EDUARDO SAAB RESIDENT Sep 05, 2024 at 23:19 Date of Discharge: Sep 11, 2024 Admitting Diagnosis Shortness of breath, cough and hemoptysis Wounds: No wounds present at this time. Labs/Diagnostic Data: Laboratory Results Test 09/11/24 05:18 09/10/24 09:47 09/10/24 06:30 09/07/24 18:30 White Blood Count 17.8 10^3/uL (4.4-10.8) Red Blood Count 4.51 10^6/uL (4.0-5.20) Hemoglobin 14.3 g/dL (12.2-16.2) Hematocrit 43.1 % (36.0-46.0) Mean Corpuscular Volume 95.5 fL (80.0-100.0) Mean Corpuscular Hemoglobin 31.6 pg (28.0-32.0) Mean Corpuscular Hemoglobin Concent 33.1 g/dL (32.0-36.0) Red Cell Distribution Width 14.0 % (11.8-14.3) Platelet Count 258 10^3/uL (140-450) Mean Platelet Volume 9.7 fL (6.9-10.8) Neutrophils (%) (Auto) % (37.0-80.0) Lymphocytes (%) (Auto) % (10.0-50.0) Monocytes (%) (Auto) % (0.0-12.0) Basophils (%) (Auto) % (0.0-2.0) Neutrophils # (Auto) 10 ^3/uL (1.6-8.6) Lymphocytes # (Auto) 10 ^3/uL (0.4-5.4) Monocytes # (Auto) 10 ^3/uL (0-1.3) Differential Total Cells Counted 100.0 (100) Neutrophils % (Manual) 73 (37.0-80.0) Band Neutrophils % (Manual) 2 Lymphocytes % (Manual) 17 (10.0-50.0) Monocytes % (Manual) 8 (0-12) Eosinophils % (Manual) 0 (0-7) Basophils % (Manual) 0 (0.0-2.0) Metamyelocytes % (manual) 0 Myelocytes % (Manual) 0 Promyelocytes % (Manual) 0 Blast Cells % (Manual) 0 Reactive Lymphocytes 0 Platelet Estimate Adequate Sodium Level 139 mmol/L (136-145) Potassium Level 4.0 mmol/L (3.5-5.1) Chloride Level 103 mmol/L (98-107) Carbon Dioxide Level 26 mmol/L (20-31) Anion Gap 10 (5-15) Blood Urea Nitrogen 14 mg/dL (9-23) Creatinine 0.90 mg/dL (0.550-1.02) Glomerular Filtration Rate Calc 71 mL/min (>90) BUN/Creatinine Ratio 15.6 (10.0-20.0) Serum Glucose 82 mg/dL (74-106) Calcium Level 10.1 mg/dL (8.7-10.4) Blood Gas Specimen Type Arterial Blood Gas Sample Site Left radial Blood Gas Patient Temperature 37.0 Arterial Blood Date Drawn [id number] Arterial Blood pH 7.488 (7.350-7.450) Arterial Blood Partial Pressure CO2 35.1 mmHg (32.0-45.0) Arterial Blood Partial Pressure O2 48.6 mmHg (83.0-108.0) Arterial Blood HCO3 26.0 mmol/L (21.0-28.0) Arterial Blood Oxygen Saturation 86.5 % (94.0-98.0) Arterial Blood Base Excess 2.9 mmol/L (-2.0-3.0) Arterial Blood Oxyhemoglobin 86.0 % (94.0-98.0) Arterial Blood Carboxyhemoglobin 0.3 % (0.5-1.5) Arterial Blood Methemoglobin 0.3 % (0.0-1.5) [place] Test Yes Blood Gas Total Hemoglobin 13.30 g/dL (12.0-16.0) Blood Gas Modality Room air FiO2 % 21.0 Blood Gas Critical Value Read Back Yes Blood Gas Notified Whom melly Ortega md Blood Gas Notified Time [id number] Blood Gas Notified By Rob aguero i. Eosinophils (%) (Auto) 0.0 % (0.0-7.0) Eosinophils # (Auto) 0 10 ^3/uL (0-0.8) Basophils # (Auto) 0 10 ^3/uL (0-0.2) Nucleated Red Blood Cells 0.2 % Total Bilirubin 0.6 mg/dL (0.2-1.0) Aspartate Amino Transferase (AST) 12 U/L (13-40) Alanine Aminotransferase (ALT) 15 U/L (7-40) Alkaline Phosphatase 69 U/L (46-116) Total Protein 6.4 g/dL (5.7-8.2) Albumin 4.1 g/dL (3.2-4.8) Urine Color Colorless (Yellow) Urine Clarity Clear (Clear) Urine pH 5.0 (5.0-9.0) Urine Specific [place] 1.005 (1.001-1.035) Urine Protein Negative (Negative) Urine Ketones Negative (Negative) Urine Blood Negative /uL (Negative) Urine Nitrite Negative (Negative) Urine Bilirubin Negative (Negative) Urine Urobilinogen Normal mg/dL (Negative) Urine Leukocyte Esterase Negative /uL (Negative) Urine RBC 1 /hpf (0 - 4) Urine Microscopic WBC 1 /HPF (0-5) Urine Squamous Epithelial Cells Few /hpf (<5) Urine Bacteria Few /hpf (None Seen) Urine Glucose Normal mg/dL (Normal) Urine Opiates Screen Neg (NEGATIVE) Urine Fentanyl Screen Neg (NEGATIVE) Urine Barbiturates Screen Neg (NEGATIVE) Urine Phencyclidine Screen Neg (NEGATIVE) Urine Amphetamines Screen Neg (NEGATIVE) Urine Benzodiazepines Screen Neg (NEGATIVE) Urine Cocaine Screen Neg (NEGATIVE) Urine Cannabinoids Screen Neg (NEGATIVE) Test 09/07/24 13:40 09/06/24 11:45 09/06/24 06:12 09/06/24 02:01 Stool Occult Blood Negative (Negative) Stool Occult Blood Sample #3 (Negative) Triglycerides Level 48 mg/dL (< 150) Cholesterol Level 179 mg/dL (< 200) LDL Cholesterol 94 mg/dL (< 100) HDL Cholesterol 72 mg/dL (40-59) TB Test (QFT) Gold Plus Negative (Negative) TB Test (QFT) Nil 0.03 IU/mL (.) TB Test (QFT) Mitogen 1.47 IU/mL (.) TB Test (QFT) Antigen 1 0.20 IU/mL (.) TB Test (QFT) Antigen 2 0.02 IU/mL (.) TB Test (QFT) Criteria Comment (.) Hemoglobin A1c 5.3 % A1C (<5.7) Vitamin B12 Level 471 pg/mL (211-911) Vitamin D 25-Hydroxy 67.4 ng/mL (30.0-100) Blood Gas Liter Flow 4.00 Test 09/06/24 01:08 09/06/24 00:27 09/05/24 22:54 09/05/24 22:07 Influenza Type A Antigen Negative (Negative) Influenza Type B Antigen Negative (Negative) SARS-CoV-2 Antigen (Rapid) Negative (NEGATIVE) Erythrocyte Sedimentation Rate 15 mm/hr (0-20) D-Dimer, Quantitative 0.44 mg/L FEU (0.0-0.49) Magnesium Level 2.2 mg/dL (1.6-2.6) Troponin I High Sensitivity < 3 ng/L (</=34) C-Reactive Protein High Sensitivity 0.21 mg/dL (<1.0) Thyroid Stimulating Hormone (TSH) 63.84 uIU/mL (0.55-4.78) Prothrombin Time 11.4 sec (9.3-11.8) Prothrombin Time INR 1.08 (0.9-1.15) Activated Partial Thromboplast Time 30.2 SEC (24.5-34.5) Lactic Acid Level 1.4 mmol/L (0.4-2.0) B-Type Natriuretic Peptide 33.96 pg/mL (0-100) Free Thyroxine (T4) Calculated 0.89 ng/dL (0.89-1.76) Total Triiodothyronine (TT3) 0.61 ng/mL (0.60-1.81) Other Laboratory Tests 09/11/24 05:18 Brief Hx & Hospital Course: This is a 64-year-old female with past medical history of multiple strokes, last stroke was in 2018 with a hemorrhagic stroke bilaterally which had neurologic residual deficits in the right upper and right lower extremities and slurred speech, hypertension, hyperlipidemia, COPD (no home oxygen), hypothyroidism who presented to the ED brought by her due to shortness of breath, cough and hemoptysis. The states that all symptoms started three days before coming to the ED. 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 Patient and both denied any episode of fever/chills, weight loss, chest pain, abdominal tenderness, lower extremity swelling or any other symptoms. Upon admission, initial CBC showed a WBC of 11.3 but BNP was grossly unremarkable. TSH was significantly elevated at 63.84, we ordered free T4. Initial chest x-ray was showing right lower lobe opacities which could be compatible with consolidation/pneumonia. Patient was started on IV ceftriaxone and azithromycin. QuantiFERON to rule out tuberculosis test was sent and came back negative. Patient still on 2 L of oxygen nasal cannula which he has states that he is basically her baseline in the she does use oxygen at home. We consulted social service for portable oxygen machine and home oxygen. Patient was seen and examined at bedside today, patient denies fever/chills, shortness of breath, chest pain or any other complaints at this time. Patient states that he is feeling well overall. We will discharge the patient on levofloxacin 750 mg daily for five additional days to complete treatment. Both patient and agreed with the plan. ROS Constitutional: Denies weight loss, fever and chills. HEENT: Denies changes in vision and hearing. Respiratory: Denies shortness of breath and cough Cardiovascular: Denies chest discomfort or palpitations GI: Denies abdominal pain, nausea, vomiting and diarrhea. : Denies dysuria and urinary frequency. Musculoskeletal: Denies myalgias and joint pain Skin: Denies rash and pruritus. Neurological: Denies dizziness, headache, vision or hearing problems Physical Examination on the day of discharge: General: Patient alert and oriented in person, place and time. Patient following commands. HEENT: Normocephalic, atraumatic, moist mucous membranes Respiratory/pulmonary: Clear lungs bilaterally, no associated crackles or wheezes. on 2L per minute of O2 NC (baseline) Cardiovascular: Normal heart sounds S1 and S2 with no associated murmurs Abdomen: Abdomen nondistended, there is no pain to palpation in any of the abdominal quadrants, no palpable masses. Extremities: There is no peripheral edema present at the lower extremities. Peripheral Pulses: 3+ Radial (R). 3+ Radial (L). 3+ Dorsalis pedis (R). 3+ Dorsalis pedis(L) Skin: No rashes or pruritus, there is no sacral edema present at this time. Neurological: Intact cranial nerves with no focal neurologic deficits Counseled for 16 minutes and tobacco use cessation on the day of discharge Discussed with Dr. Ornelas Consults/Reason for consult Pulmonology for hemoptysis Operations or Procedures CHEST RADIOGRAPH Indication: SOB, cough with hemoptysis Technique: Single frontal view of the chest was obtained Comparison: None Findings/ IMPRESSION: Right basilar opacification concerning for airspace disease. No pneumothorax. Bilateral lower extremity venous duplex Clinical History: r/o dvt Comparison: None Technique: Duplex Doppler evaluation of the deep venous systems of both lower extremities from the common femoral veins to the popliteal veins including color Doppler and spectral/pulsed waveform analysis was performed. Findings: RIGHT SIDE: The common femoral vein demonstrates appropriate compressibility and waveform variability. There is compressibility/patency of the great saphenous vein at the proximal thigh. The femoral vein demonstrates appropriate compressibility and waveform variability. The deep femoral vein demonstrates appropriate compressibility and waveform variability. The popliteal vein demonstrates appropriate compressibility and waveform variability. There is normal compressibility at the tibioperoneal trunk. LEFT SIDE: The common femoral vein demonstrates appropriate compressibility and waveform variability. There is compressibility/patency of the great saphenous vein at the proximal thigh. The femoral vein demonstrates appropriate compressibility and waveform variability. The deep femoral vein demonstrates appropriate compressibility and waveform variability. The popliteal vein demonstrates appropriate compressibility and waveform variability. There is normal compressibility at the tibioperoneal trunk. Impression: 1. No right or left femoropopliteal venous thrombosis. CTA Chest with intravenous contrast INDICATION: r/o nodules/mass/PE COMPARISON: None TECHNIQUE: Multidetector spiral CTA of the chest was performed of the chest with intravenous contrast. PULMONARY ANGIOGRAPHY PROTOCOL was utilized using a bolus- tracking technique centered on the main pulmonary artery. Axial, coronal and sagittal multiplanar and MIP reformats were performed. CONTRAST: Type of contrast: Omni 350 Contrast injected: 80 ml Radiation dose : Chest: CTDI volume is 15 mGy. Dose-length product is 505 mGy*cm The dose indicators for CT are the volume computed Tomography (CT) dose Index (CTDIvol) and the dose Length product (DLP), and are measured in units of mGy and mGy-cm, respectively. These indicators are not patient dose, but values generated from the CT scanner acquisition factors. The report includes radiation exposure data for exposures received during this examination. Findings: Limited by motion. Pulmonary artery: No large central or large segmental pulmonary embolism. Lower neck: Normal thyroid. Lungs: Bibasilar consolidation. Emphysematous changes in both lungs. Heart/Vascular Structures: Normal heart size. Small pericardial effusion. Lymph Nodes: Mediastinal lymph nodes, largest in the AP window measuring up to 11 mm in short axis. Pleura: No pleural effusion or significant pneumothorax. Musculoskeletal: No acute osseous abnormality. Soft tissues: Normal. Upper abdomen: Fullness in the region of the christian hepatis incompletely evaluated. IMPRESSION: 1. No pulmonary embolism. 2. Bibasilar pneumonia. Small pericardial effusion. Mediastinal lymphadenopathy. Clinical correlation and continued follow-up is recommended. 3. Fullness in the region of the christian hepatis incompletely evaluated. Could represent volume averaging. Consider further evaluation with CT or MRI of the abdomen with contrast. Condition at Discharge: Stable Final Diagnosis/Problems List Acute hypoxic respiratory failure likely due to right lower lobe Gram-positive/Gram-negative pneumonia Acute COPD exacerbation Sepsis likely due to above Ruled out Tuberculosis Ruled out lower ext DVT Hypothyroidism History of multiple CVAs with neurologic deficits in the right upper and lower extremity weakness Primary hypertension Dyslipidemia Current smoker with nicotine dependence Discharge Disposition: Home Discharge Instruct/Medications Diet: Regular Activity: No Restrictions, As Tolerated Follow Up/Referral: F/U with her PCP in 1 week Medications: Levofloxacine 750mg daily for 5 days Discharge Statement: "Patient was advised to return to the ER or call 911 if any headaches, dizziness, shortness of breath, chest pain, abdominal pain, bleeding, fevers, or worsening of medical condition. Patient was counseled about treatment plan, medications, possible side effects, patientverbalized understanding. All questions were answered to the best of my ability. This discharge took greater then 30 minutes in planning, reviewing documentation, counseling the patient, and discussing with other team members." ASSESSMENT ASSESSMENT Assessment Acute hypoxic respiratory failure likely due to right lower lobe Gram-positive/Gram-negative pneumonia Acute COPD exacerbation Sepsis likely due to above Ruled out Tuberculosis Ruled out lower ext DVT Hypothyroidism History of multiple CVAs with neurologic deficits in the right upper and lower extremity weakness Primary hypertension Dyslipidemia Current smoker with nicotine dependence Addendum Addendum Addendum I was physically present for the parks portions of the service provided to patient by THE RESIDENT. I have reviewed the documentation, discussed the case with resident and agree with the resident's documentation except as noted. Also the patient's clinical case was discussed with the patient's nurse. This medical document was created using an electronic medical record system with computerized dictation system. Although this document has been carefully reviewed, there might still be some phonetic and typographical errors. These areas are purely typographical due to imperfections of the software programs, and do not reflect any compromise in the patient's medical care. Late signature. Date of Service: Sep 11, 2024 Billing Provider: NIALL ORNELAS MD Common Visit Codes: 22489-FVC/OBS DISCH DAY >30min Secondary Visit Codes: 65171-WGPAP CHNG SMOKING >10MIN (Counseled for 16 minutes on tobacco use cessation) EDUARDO SAAB RESIDENT Sep 11, 2024 10:57 NIALL ORNELAS MD Sep 12, 2024 08:35
[2024-09-11] MEDS ORDERED: GADOTERATE MEG 10 MMOL/20ml INJ (0.5MMOL/ml) IV ONE (11:00)
--- NOTE | 2024-09-11 13:12 | DVHPN2 ---
Progress Note - Dictate Date Seen: Sep 11, 2024 Has the PT tested + for MRSA If YES, has PT been informed?: No Medical Necessity Reason Pt with a Central, PICC or Fol: No vital signs Vital Sign Date Time Temp Pulse Resp B/P (MAP) Pulse Ox O2 Delivery O2 Flow Rate FiO2 09/11/24 11:08 70 16 100 09/11/24 11:02 Nasal Cannula 2.0 09/11/24 11:02 28 09/11/24 09:12 138/61 09/11/24 09:04 98.3 98.3 Total Intake and Output 09/10/24 09/10/24 09/11/24 15:00 23:00 07:00 Intake Total 550 ml 400 ml Balance 550 ml 400 ml medications Current Medications Medications Dose Ordered Sig/Mihai Route Start Time Stop Time Status Last Admin Dose Admin Ipratropium [place] 0.5 mg Q4HWA NEB 09/06/24 06:00 09/11/24 11:02 0.5 MG Ceftriaxone Sodium 50 ml @ 100 mls/hr DAILY@09 IV 09/06/24 09:00 09/11/24 09:08 100 MLS/HR Amlodipine Besylate 10 mg DAILY PO 09/06/24 10:00 09/11/24 09:12 10 MG Citalopram Hydrobromide 20 mg DAILY PO 09/06/24 10:00 09/09/24 09:30 20 MG Atorvastatin Calcium 40 mg HS PO 09/06/24 22:00 09/10/24 21:31 40 MG Clopidogrel Bisulfate 75 mg DAILY PO 09/06/24 10:00 09/11/24 09:11 75 MG Enoxaparin Sodium 40 mg DAILY SC 09/06/24 10:00 09/11/24 09:11 40 MG Pantoprazole Sodium 40 mg DAILY IV 09/06/24 03:30 09/11/24 09:10 40 MG Nicotine 1 patch DAILY TD 09/07/24 10:00 09/11/24 09:09 1 PATCH Albuterol 2.5 mg Q4HWA NEB 09/06/24 06:00 09/11/24 11:02 2.5 MG Levothyroxine Sodium 75 mcg QAM@0600 PO 09/07/24 06:00 09/11/24 06:00 75 MCG Docusate Sodium 100 mg BID PO 09/07/24 10:00 09/11/24 09:12 100 MG Azithromycin 500 mg DAILY PO 09/07/24 11:01 09/11/24 09:11 500 MG Sodium Chloride 500 ml @ 75 mls/hr Q6H40M IV 09/07/24 13:30 09/11/24 04:21 75 MLS/HR Methylprednisolone Sodium Succinate 20 mg DAILY IV 09/11/24 10:00 09/11/24 09:10 20 MG laboratory and microbiology Laboratory Tests 09/11/24 05:18 Test 09/11/24 05:18 Range/Units Serum Glucose 82 74-106 mg/dL Assessment/Plan Impression: Acute hypoxic respiratory failure Dependence on supplemental oxygen Acute COPD exacerbation Hemoptysis Rule out TB Pneumonia Nicotine dependence Patient seen and examined Events Low oxygen requirements No acute events TB test neg've Labs and imaging reviewed CT of the chest shows emphysema, no discreet lesions TB unlikely Plan: Supplemental oxygen Titrate to keep O2 sats above 92%. Taper O2 as tolerated. Induction of sputum for cultures Continue bronchodilators. Continue antibiotics IV steroids Incentive spirometry Antitussive for cough Monitor renal function. Monitor electrolytes Supplement as necessary. Monitor ins and outs. DVT prophylaxis. Dietary Evaluation Review Comments: 1) Advance to cardiac diet as medically feasible 2) Continue current plan of care Expected Outcomes/Goals: To meet >75% estimated needs Fu 2-3 days Plan discussed with: Other (rn) JOSH CHUNG MD Sep 11, 2024 13:12
--- NOTE | 2024-09-11 13:13 | DVH ---
MRI Abdomen, with and without IV Contrast Exam Date: 09/11/2024 11:19 AM Comparison: None History: R/O METS Technique: Multisequence multiplanar MRI images were obtained of the abomen. 10 mL of gadavist was administered intravenously during this examination. Initial imaging is obtaine d without intravenous contrast. Findings: Limited by motion. Trace bilateral pleural effusions. Moderate pericardial effusion. Liver: Subcentimeter hepatic cysts. Spleen: Subcentimeter splenic cysts. Pancreas: The pancreas is normal in appearance without focal lesions. Gallbladder and ducts: Gallbladder is normal in appearance. The cystic duct, right and left hepatic ducts, common hepatic duct, and common bile ducts are unremarkable. The pancreatic duct is within n ormal limits. Adrenal glands: Unremarkable. Kidneys: Normal enhancement without suspicious lesions or hydronephrosis. Visualized bowel: Grossly unremarkable. Vasculature: Unremarkable. Lymphadenopathy: No evidence for lymphadenopathy. Ascites: Absent. Musculoskeletal: Enhancing lesion in the L2 vertebral body. IMPRESSION: 1. Limited by motion, particularly the post contrast sequences. Subcentimeter hepatic and splenic cys ts. No definite mass identified. Trace bilateral pleural effusions. Moderate pericardial effusion. If concern persists consider further evaluation with CT of the abdomen with contrast. 2. Enhancing lesion in the L2 vertebral body could represent a hemangioma. A metastatic lesion is not excluded. This can be further evaluated with MRI of the lumbar spine with and without contrast and/o r PET-CT. HS:Y.
== END 2024-09-11 16:50 | disposition home or self-care (01) | DRG 871 ==
LOC: ER 20:12 → OVERFLOW 23:19 → WEST WING 09-06 01:30
PROVIDERS: ADMIT Internal Medicine; ATTEND Emergency Medicine
DX: A41.50 Gram-negative sepsis, unspecified (principal); J15.69 Pneumonia due to other Gram-negative bacteria; J96.01 Acute respiratory failure with hypoxia; J44.0 Chronic obstructive pulmonary disease with (acute) lower respiratory infection; J44.1 Chronic obstructive pulmonary disease with (acute) exacerbation; R04.2 Hemoptysis; F17.210 Nicotine dependence, cigarettes, uncomplicated; E78.5 Hyperlipidemia, unspecified; Z99.81 Dependence on supplemental oxygen; Z20.822 Contact with and (suspected) exposure to COVID-19; E03.9 Hypothyroidism, unspecified; I10 Essential (primary) hypertension; Z82.3 Family history of stroke; J43.9 Emphysema, unspecified; Z86.73 Personal history of transient ischemic attack (TIA), and cerebral infarction without residual deficits; Z79.899 Other long term (current) drug therapy; Z88.8 Allergy status to other drugs, medicaments and biological substances; Z79.02 Long term (current) use of antithrombotics/antiplatelets
CPT/HCPCS: 36415; 36600; 71045; 71275; 74181; 80048; 80053; 80061; 80307; 81001; 82270; 82306; 82607; 82805; 83036; 83605; 83735; 83880; 84439; 84443; 84480; 84484; 85007; 85025; 85027; 85379; 85610; 85652; 85730; 86141; 87040; 87081; 87426; 87804; 93005; 93970; 94640; 97116; 97163; 97530; 99291; G0378; J2470